=== PATIENT | male | born 1965 | race Caucasian/White ===

== ENCOUNTER 2017-07-17 09:28 | Observation (INO) | payer BC ==
[2017-07-17] VITALS (7 sets, daily range): BP systolic 109–137; BP diastolic 67–79; PULSE 68–78; RESP 17–27; TEMP 98–98.7; O2SAT 91–95
[~2017-07-17] VITALS: Ht 182.9 cm; Wt 144.1 kg
[~2017-07-17 09:28] MED LIST: LOSA50TA PO; METF1000 PO
[2017-07-17] MEDS ORDERED: AMLO10TA2 PO (12:13)
[2017-07-17 14:22] LABS: CREATINE KINASE 136 U/L (39-308)
[2017-07-17] MEDS ORDERED: SODIUM CHLORIDE 0.9% FLUSH 10 ML FLUSH IV FLUSH PRN (14:30)
[2017-07-17] MEDS ORDERED: ACETAMINOPHEN 500 MG CPLT PO PRN (14:30)
[2017-07-17] MEDS ORDERED: ONDANSETRON HCL 4 MG/2 ML VIAL IV PUSH PRN (14:30)
[2017-07-17] MEDS ORDERED: ALPRAZolam 0.25 MG TAB PO PRN (14:30)
[2017-07-17] MEDS ORDERED: NITROGLYCERIN 0.4 MG SL 25 TABS/BTL SL PRN (14:30)
[2017-07-17 14:34] LABS: CKMB 1.8 NG/ML (0.5-3.6)
[2017-07-17] MEDS ORDERED: GLUCAGON 1 MG/ML VIAL OTHER PRN (14:45)
[2017-07-17] MEDS ORDERED: DEXTROSE 50% IN WATER 50 ML VIAL(D50) IV PUSH PRN (14:45)
--- NOTE | 2017-07-17 14:56 | HHI.HP ---
[facility] Primary Care Physician Non-Staff Admission Diagnosis chest pain Diagnoses: Chief Complaint: chest pain Travel History International Travel<30 Days: No Contact w/Intl Traveler <30 Da: No Traveled to Known Affected Are: No History of Present Illness Written by Patricia Dominguez PA-C acting as scribe for Dr. Rapp on 07/17/17 at 1456. 52-year-old male with history of diabetes, hypertension, HLD as well as daily alcohol use presents with complaint of chest pain and high blood pressure. He describes pain as needles pinching in the center of his chest, episodes lasting less than 5 minutes, coming and going. Pain is not associated with exertion. Denies any associated palpitations or diaphoresis. Patient states he felt like he had to have a bowel movement at the time of chest pain. No previous stress test. Review of Systems Except as stated in HPI: all other systems reviewed are Neg Past Family Social History Past Medical History Diabetes Hypertension Hyperlipidemia Past Surgical History Umbilical hernia repair Laceration repair face Reported Medications Amlodipine (Amlodipine Besylate) 10 Mg Tab 10 Mg PO DAILY Metformin (Metformin HCl) 1,000 Mg Tab 1,000 Mg PO DAILY With a meal Losartan (Losartan Potassium) 50 Mg Tab 50 Mg PO DAILY Allergies: Coded Allergies: No Known Allergies (Unverified , 07/17/17) Family History Mother with coronary artery disease; of [place] in her 70s. Father: Diabetes Social History Drinks 4-6 beers daily. Does not smoke currently but smoked cigarettes for 20 years. Denies illicit drug use. Physical Exam Vital Signs Vital Signs Date Time Temp Pulse Resp B/P (MAP) Pulse Ox O2 Delivery O2 Flow Rate FiO2 07/17/17 12:21 98.0 72 27 132/78 (96) 07/17/17 09:35 98.1 70 17 137/70 (92) Physical Exam GENERAL: This is a morbidly obese well-developed patient, in no apparent distress. SKIN: No rashes, ecchymoses or lesions. Warm and dry. HEAD: Atraumatic. Normocephalic. EYES: No scleral icterus. No injection or drainage. NECK: Trachea midline. CARDIOVASCULAR: Regular rate and rhythm without murmurs, gallops, or rubs. RESPIRATORY: Clear to auscultation. Breath sounds equal bilaterally. No wheezes , rales, or rhonchi. GASTROINTESTINAL: Normoactive bowel sounds. Abdomen soft, non-tender, nondistended. No guarding. NEUROLOGICAL: Awake and alert. Normal speech. PSYCHIATRIC: Normal mood and affect. Laboratory Laboratory Tests Test 07/17/17 13:40 Total Creatine Kinase 136 Creatine Kinase MB 1.8 Troponin I LESS THAN 0.02 Imaging Last Impressions Chest CT 07/17/17 0000 Signed Impressions: Service Date/Time: Monday, July 17, 2017 15:15 - CONCLUSION: 1. Negative examination. MD Michael Mack VTE Risk Assessment Michael VTE Risk Assessment: Mod/High Risk (score >= 2) Caprini Risk Assessment Model Point Value = 1 Point Value = 2 Point Value = 3 Point Value = 5 Age 41-60 Minor surgery BMI > 25 kg/m2 Swollen legs Varicose veins or History of unexplained or recurrent spontaneous Oral contraceptives or hormone replacement Sepsis (< 1 month) Serious lung disease, including pneumonia (< 1 month) Abnormal pulmonary function Acute myocardial infarction Congestive heart failure (< 1 month) History of inflammatory bowel disease Medical patient at bed rest Age 61-74 Arthroscopic surgery Major open surgery (> 45 min) Laparoscopic surgery (> 45 min) Malignancy Confined to bed (> 72 hours) Immobilizing plaster cast Central venous access Age >= 75 History of VTE Family history of VTE Factor V Leiden Prothrombin [id number] Lupus anticoagulant Anticardiolipin antibodies Elevated serum homocysteine Heparin-induced thrombocytopenia Other congenital or acquired thrombophilia Stroke (< 1 month) Elective arthroplasty Hip, pelvis, or leg fracture Acute spinal cord injury (< 1 month) Prophylaxis Regimen Total Risk Factor Score Risk Level Prophylaxis Regimen 0-1 Low Early ambulation 2 Moderate Order ONE of the following: *Sequential Compression Device (SCD) *Heparin 5000 units SQ BID 3-4 Higher Order ONE of the following medications: *Heparin 5000 units SQ TID *Enoxaparin/Lovenox 40 mg SQ daily (WT < 150 kg, CrCl > 30 mL/min) *Enoxaparin/Lovenox 30 mg SQ daily (WT < 150 kg, CrCl > 10-29 mL/min) *Enoxaparin/Lovenox 30 mg SQ BID (WT < 150 kg, CrCl > 30 mL/min) AND/OR *Sequential Compression Device (SCD) 5 or more Highest Order ONE of the following medications: *Heparin 5000 units SQ TID (Preferred with Epidurals) *Enoxaparin/Lovenox 40 mg SQ daily (WT < 150 kg, CrCl > 30 mL/min) *Enoxaparin/Lovenox 30 mg SQ daily (WT < 150 kg, CrCl > 10-29 mL/min) *Enoxaparin/Lovenox 30 mg SQ BID (WT < 150 kg, CrCl > 30 mL/min) AND *Sequential Compression Device (SCD) Assessment and Plan Assessment and Plan 52-year-old male with: Chest pain: EKG personally interpreted with normal sinus rhythm and no evidence of ischemia. There is an intraventricular conduction delay. CBC unremarkable. Troponin 3 less than 0.02. CK-MB normal x 3. Chest x-ray personally interpreted with an abnormality noted at the right middle lobe although not indicated by radiology report. -CT chest with IV contrast normal. -Telemetry -325 mg daily aspirin -Nitroglycerin as needed for chest pain -Lipid profile -Patient's this pain could be due to anxiety. Will start Xanax 0.25 mg q8h prn. -Treadmill contraindicated due to obesity. Lexiscan cannot be performed today due to maintenance so will order test for the morning. NPO after midnight and no caffeine or decaf after 1900 hours. HTN: Continue Amlodipine and Losartan. Diabetes: Blood glucose controlled. -Hemoglobin A1c -Accu-checks and low dose SSI GI prophylaxis: Pepcid 20 mg po bid DVT prophylaxis: SCDs. This note was transcribed by heladio Dominguez. I, Dr. Lizandro Mancilla personally performed the history, physical exam, and medical decision making; and confirmed the accuracy of the information in the transcribed note. Authenticated by Dr. Lizandro Mancilla on 07/17/17 at 15:07. Discussed Condition With patient Patricia Dominguez Jul 17, 2017 14:56 Lizandro Farley MD Jul 17, 2017 17:05
[2017-07-17] MEDS ORDERED: IOHEXOL 350 MG/ML 10 ML VIAL (for RAD DIAG) IVCONTRAST ONE (15:20)
[2017-07-17] MEDS ORDERED: METFORMIN HOLD POST IV CONTRAST SCH (15:20)
--- NOTE | 2017-07-17 15:32 | RADRPT ---
EXAM DATE/TIME: 07/17/2017 15:15 [facility] COMPARISON: No previous studies available for comparison. INDICATIONS : Left sided chest pain. IV CONTRAST: 65 cc Omnipaque 350 (iohexol) IV RADIATION DOSE: 30.98 CTDIvol (mGy) ; Patient body habitus MEDICAL HISTORY : Hypertension. Diabetes. SURGICAL HISTORY : None. ENCOUNTER: Initial ACUITY: 2 days PAIN SCALE: 1/10 LOCATION: Left chest TECHNIQUE: Volumetric scanning of the chest was performed. Using automated exposure control and adjustment of t he mA and/or kV according to patient size, radiation dose was kept as low as reasonably achievable to obtain optimal diagnostic quality images. DICOM format image data is available electronically for review and comparison. Follow-up recommendations for detected pulmonary nodules are based at a minimum on nodule size and pa tient risk factors according to Fleischner Society Guidelines. FINDINGS: LUNGS: There is no consolidation or pneumothorax. No concerning pulmonary nodule is visualized. PLEURA: There is no pleural thickening or pleural effusion. MEDIASTINUM: The heart and great vessels demonstrate no acute abnormality. There is no mediastinal or hilar lymph adenopathy. AXILLAE: Within normal limits. No lymphadenopathy. SKELETAL: There are mild degenerative changes in the thoracic spine. MISCELLANEOUS: The visualized upper abdominal organs demonstrate no acute abnormality. CONCLUSION: 1. Negative examination. Aroldo Neal MD on July 17, 2017 at 15:27 Board Certified Radiologist. This report was verified electronically.
[2017-07-17] MEDS: LOSARTAN 50 MG TAB PO SCH (16:22)
[2017-07-17] MEDS: INSULIN ASPART SUPPLEMENTAL SCALE SQ SCH ×2 (17:00→21:00)
[2017-07-17] MEDS: SODIUM CHLORIDE 0.9% FLUSH 10 ML FLUSH IV FLUSH SCH (21:09)
[2017-07-17] MEDS: FAMOTIDINE 20 MG TAB PO SCH (21:11)
[2017-07-18] VITALS: BP 140/80; PULSE 58; PULSE 66; RESP 17; TEMP 98; O2SAT 92
[2017-07-18 04:29] VITALS: BP 147/81; PULSE 68; RESP 21; TEMP 98.4; O2SAT 93
[2017-07-18 07:00] VITALS: PULSE 67
[2017-07-18 08:00] VITALS: BP 126/71; PULSE 66; RESP 17; TEMP 98; O2SAT 92; O2SAT 96
[2017-07-18] MEDS: INSULIN ASPART SUPPLEMENTAL SCALE SQ SCH ×2 (08:00→12:00)
[2017-07-18] MEDS: LOSARTAN 50 MG TAB PO SCH (09:00)
[2017-07-18] MEDS: SODIUM CHLORIDE 0.9% FLUSH 10 ML FLUSH IV FLUSH SCH (09:00)
[2017-07-18] MEDS: FAMOTIDINE 20 MG TAB PO SCH (09:00)
[2017-07-18] MEDS ORDERED: ASPIRIN 325 MG TAB PO SCH (09:00)
[2017-07-18] MEDS ORDERED: REGADENOSON INJ 0.4 MG/5 ML SYR IV ONE (09:30)
[2017-07-18 09:36] LABS: HDL CHOLESTEROL 37.1 MG/DL (40.0-60.0); LDL CHOLESTEROL 71 MG/DL (0-99)
--- NOTE | 2017-07-18 11:13 | RADRPT ---
EXAM DATE/TIME: 07/18/2017 09:01 [facility] COMPARISON: No previous studies available for comparison. INDICATIONS : Chest pain radiating to the left shoulder. Angina. DOSE: 35 mCi Tc99m Myoview at stress. 11 mCi Tc99m Myoview at rest. 0.4 mg Lexiscan STRESS SYMPTOMS: Dyspnea and dizziness. EJECTION FRACTION: 40% MEDICAL HISTORY : Hypercholesterolemia. Hypertension. Gastroesophageal reflux disease. SURGICAL HISTORY : Umbilical hernia repair. ENCOUNTER: Initial ACUITY: 1 day PAIN SCALE: 6/10 LOCATION: chest TECHNIQUE: The patient underwent pharmacologic stress with infusion of prescribed dose. Continuous ECG tracing was monitored during stress. Gated SPECT imaging was performed after stress and conventional SPECT i maging was performed at rest. The examination was performed on a SPECT/CT scanner, both attenuation and non-corrected datasets were reviewed. FINDINGS: There is mild dilatation of ventricular cavity with ejection fraction of 40%. The best perfused myocardium at stress is the anterior lateral wall. There are no fixed defects to s uggest infarction. There is no redistribution suggest ischemia. CONCLUSION: Ejection fraction 40%, negative for stress-induced ischemia. RISK CATEGORY: Low (<1% Annual Mortality Rate) Siva Neal MD FACR on July 18, 2017 at 11:10 Board Certified Radiologist. This report was verified electronically.
--- NOTE | 2017-07-18 11:27 | TR ---
Date Performed: 07/18/2017 Time Performed: 09:33:58 DOCTOR: Ej Mckay DRUG LIST: CLINICAL HISTORY: REASON FOR TEST: Chest pain REASON FOR ENDING: OBSERVATION: CONCLUSION: Lexiscan stress test was performed under standard four minute protocol. Radionuclid e was injected one minute prior to ending the test. No electrocardiographic abormalities were present to suggest ischemia. Nuclear imaging and interpretation are pending. COMMENTS:
[2017-07-18 12:00] VITALS: BP 134/79; PULSE 68; RESP 24; TEMP 98.2; O2SAT 91
[2017-07-18] MEDS ORDERED: FURO1TAB62 PO (13:04)
[2017-07-18] MEDS ORDERED: CORE25TA PO (13:04)
--- NOTE | 2017-07-18 13:04 | HHI.DCPOC ---
Discharge Care Plan Diagnosis: (1) Chest pain, atypical (2) Heart failure Goals to Promote Your Health * To prevent worsening of your condition and complications * To maintain your health at the optimal level Directions to Meet Your Goals Take your medications as prescribed Follow your dietary instruction Follow activity as directed Keep your appointments as scheduled Take your immunizations and boosters as scheduled If your symptoms worsen call your PCP, if no PCP go to Urgent Care Center or Emergency Room Smoking is Dangerous to Your Health. Avoid second hand smoke Call the 24-hour hour crisis hotline for domestic abuse at Regine Ortiz MD Jul 18, 2017 13:04
--- NOTE | 2017-07-18 13:08 | HHI.DS ---
Discharge Summary Admission Date Jul 17, 2017 at 09:29 Discharge Date: Jul 18, 2017 Admitting Diagnosis chest pain (1) DM2 (diabetes mellitus, type 2) ICD Code: E11.9 - Type 2 diabetes mellitus without complications (2) Chest pain, atypical ICD Code: R07.89 - Other chest pain (3) Heart failure ICD Code: I50.9 - Heart failure, unspecified Procedures ST Brief History - From Admission Written by Patricia Dominguez PA-C acting as scribe for Dr. Rapp on 07/17/17 at 1456. 52-year-old male with history of diabetes, hypertension, HLD as well as daily alcohol use presents with complaint of chest pain and high blood pressure. He describes pain as needles pinching in the center of his chest, episodes lasting less than 5 minutes, coming and going. Pain is not associated with exertion. Denies any associated palpitations or diaphoresis. Patient states he felt like he had to have a bowel movement at the time of chest pain. No previous stress test. Significant Findings Laboratory Tests Test 07/17/17 13:40 07/18/17 04:25 Troponin I LESS THAN 0.02 NG/ML Triglycerides Level 200 MG/DL (42-150) HDL Cholesterol 37.1 MG/DL (40.0-60.0) Imaging Last Impressions Myocardial Perfusion Scan Nuc Med 07/18/17 0600 Signed Impressions: Service Date/Time: Tuesday, July 18, 2017 09:01 - CONCLUSION: Ejection fraction 40%%, negative for stress-induced ischemia. RISK CATEGORY: Low (<1%% Annual Mortality Rate) Siva Neal MD FACR Chest CT 07/17/17 0000 Signed Impressions: Service Date/Time: Monday, July 17, 2017 15:15 - CONCLUSION: 1. Negative examination. Aroldo Neal MD PE at Discharge GENERAL: This is a well-nourished, well-developed patient, in no apparent distress. CARDIOVASCULAR: Regular rate and rhythm without murmurs, gallops, or rubs. RESPIRATORY: Clear to auscultation. Breath sounds equal bilaterally. No wheezes , rales, or rhonchi. GASTROINTESTINAL: Abdomen soft, non-tender, nondistended. Normal active bowel sounds MUSCULOSKELETAL: Extremities without clubbing, cyanosis, or edema. NEURO: Alert & Oriented x4 to person, place, time, situation. Moves all ext x4 Pt update on day of discharge patient CP resolved ST completed, discussed with patient and spouse Symptoms of SOB and LAM, with Edema medication changes addressed Hospital Course patient came to be evaluated for SOB and edema with CP ST completed an shows no ischemic changed but reduced EF with ptn symptoms Likely early CHF, Coreg replaced amlodipine and education provided, lasix added Pt Condition on Discharge: Good Discharge Disposition: Discharge Home Discharge Time: > 30 minutes Discharge Instructions DIET: Follow Instructions for: Heart Healthy Diet, Diabetic Diet Activities you can perform: Regular-No Restrictions Follow up Referrals: PCP Follow-up - 1 Week with maria elena New Orders: 2D ECHO New Medications: Carvedilol (Coreg) 25 Mg Tab 25 MG PO BID for Blood Pressure Management, #60 TAB 0 Refills Furosemide (Lasix) 20 Mg Tab 20 MG PO EVERY OTHER DAY for fluid, #30 TAB 0 Refills Continued Medications: Losartan (Losartan) 50 Mg Tab 50 MG PO DAILY for Blood Pressure Management, #30 TAB 0 Refills Metformin (Metformin) 1,000 Mg Tab 1000 MG PO DAILY for Blood Sugar Management, #30 TAB 0 Refills With a meal Discontinued Medications: Amlodipine (Amlodipine) 10 Mg Tab 10 MG PO DAILY for Blood Pressure Management, #30 TAB 0 Refills Regine Ortiz MD Jul 18, 2017 13:08
[2017-07-18] MEDS ORDERED: FUROSEMIDE 40 MG TAB PO ONE (13:15)
[2017-07-18 17:00] LABS: HEMOGLOBIN A1b 1.7 %; HEMOGLOBIN LA1C 1.9 %; HEMOGLOBIN P3 3.6 %
--- NOTE | 2017-07-18 20:53 | EKG ---
Date Performed: 07/17/2017 Time Performed: 19:09:05 PTAGE: 52 years EKG: Sinus rhythm INTRAVENTRICULAR CONDUCTION DELAY ABNORMAL ECG PREVIOUS TRACING : 07/17/2017 13.47 Compared to prior tracing no significant change DOCTOR: Oscar Martell Interpretating Date/Time 07/18/2017 20:47:52
--- NOTE | 2017-07-18 21:02 | EKG ---
Date Performed: 07/17/2017 Time Performed: 13:47:32 PTAGE: 52 years EKG: Sinus rhythm INTRAVENTRICULAR CONDUCTION DELAY ABNORMAL ECG NO PREVIOUS TRACING DOCTOR: Oscar Martell Interpretating Date/Time 07/18/2017 20:53:38
== END 2017-07-18 15:20 | disposition home or self-care (01) ==
LOC: PHEDDLT 09:28 → PHICU 09:29
PROVIDERS: ADMIT Hospitalist; ATTEND Hospitalist
DX: I50.9 Heart failure, unspecified (principal); I11.0 Hypertensive heart disease with heart failure; E11.9 Type 2 diabetes mellitus without complications; E78.5 Hyperlipidemia, unspecified; E66.9 Obesity, unspecified; Z68.41 Body mass index [BMI] 40.0-44.9, adult; Z87.891 Personal history of nicotine dependence; Z79.84 Long term (current) use of oral hypoglycemic drugs
CPT/HCPCS: 71010; 71260; 78452; 80048; 80061; 82550; 82552; 82948; 83036; 83735; 84443; 84484; 85025; 85610; 85730; 93005; 93017; A9502; G0378; J2785; Q9967; 99285

== ENCOUNTER 2018-08-19 01:45 | Inpatient (IN) ==
[2018-08-19] MEDS ORDERED: Bisacodyl 10 MG Supp RECTAL PRN (03:48)
[2018-08-19] MEDS ORDERED: Haloperidol Inj 5 MG/ML Ampul IV.PUSH PRN (03:54)
[2018-08-19] MEDS ORDERED: LORazepam 1 MG Tablet PO PRN (03:54)
[2018-08-19] MEDS: Sod Chloride 0.9% Inj 1,000 ML IV.CONT SCH ×3 (05:44→20:33)
[2018-08-19] MEDS ORDERED: Dextrose 50% in Water 50 ML Vial IV.PUSH PRN (09:17)
--- NOTE | 2018-08-19 11:00 | MB ---
cc: Jaun Hurtado MD DATE: 08/19/2018 REASON FOR CONSULTATION: Rule out small bowel obstruction. CONSULTING PHYSICIAN: Chrissy Paz MD CHIEF COMPLAINT: Abdominal pain, diarrhea. HISTORY OF PRESENT ILLNESS: The patient is a 53-year-old male who presents with a 7-day history of abdominal pain. He states he was on a cruise ship traveling to [facility], [place] and developed acute onset of epigastric pain. He states the pain is not really radiating and localized in the epigastric area. He has also had minimal nausea and multiple episodes of diarrhea. He states that he has had subjective fevers. He states the pain at its worst is 8/10 and currently a 2/10. He states the pain has continued to get worse, and he was seen in the emergency department for further evaluation including CT scan with a significantly dilated small bowel, concern for bowel obstruction. The patient notes he is a daily drinker of 4-6 beers a 2-day, history of smoking but denies current smoking. Has never had this issue prior. He denies any sick contacts on the boat as well. PAST MEDICAL HISTORY: Diabetes, hypertension, hypercholesteremia. PAST SURGICAL HISTORY: Umbilical hernia repair. ALLERGIES: NO KNOWN DRUG ALLERGIES. SOCIAL HISTORY: Denies smoking, etoh, ivda MEDICATIONS: See EMR. FAMILY HISTORY: Mother with coronary artery disease, [place]. Father with diabetes. REVIEW OF SYSTEMS: GENERAL: The patient has an episode of chills. Denies fevers. HEENT: Denies eye pain, ear pain. NECK: Denies swelling or pain. LUNGS: Denies cough or wheeze. HEART: Denies palpitations or chest pain. ABDOMEN: Complains of diarrhea and abdominal pain. GENITOURINARY: Denies dysuria or hematuria. ENDOCRINE: Denies polyuria or polydipsia. INTEGUMENT: Denies any masses or lesions. NEUROLOGIC: Denies any change in numbness or tingling. PSYCHIATRIC: Denies any change in behavior. PHYSICAL EXAMINATION: GENERAL: The patient in no acute distress. VITAL SIGNS: Temperature 97.6, pulse 74, respirations 17, blood pressure 130/76, saturation 97%. HEENT: Pupils are equal, round, reactive. NECK: Supple. Trachea midline. LUNGS: Clear to auscultation, bilateral expansion. HEART: S1, S2. Regular. ABDOMEN: Soft, obese, distention. Mild tenderness to palpation in epigastric area. No guarding, no rebound. EXTREMITIES: Warm and well perfused. NEUROLOGIC: GCS of 15 and 5/5 motor all extremities. INTEGUMENT: No obvious masses or lesions. PSYCHIATRIC: Appropriate mood, appropriate judgment. LABORATORY AND DIAGNOSTIC DATA: WBC 9.1, hemoglobin 15.8, hematocrit 45.4, platelets 405. Sodium 137, potassium 4, chloride 105, BUN 28, creatinine 2.7, AST 19, ALT 37. CT reviewed by myself showing marked dilation of small bowel. No evidence of a specific transition point. No free fluid, no free air. ASSESSMENT: The patient is a 53-year-old male. Rule out small bowel obstruction, abdominal pain, diarrhea. PLAN: After full workup, the patient with above-named issues. At this point, the patient is stating his pain has improved some. He is denying vomiting at this time. A CT does show marked dilated small bowel and stomach. If patient does become nauseous or vomits, would recommend placement of an NG tube; however, we will consider continuing to treat this nonoperatively. Recommend checking any electrolyte abnormalities. The patient likely has enteritis as a result of GI illness; however, we will continue to follow and evaluate to rule out any obstruction. We will consider abdominal x-ray tomorrow and likely check a small bowel follow-through in 48 hours. Discussed with the patient and family at bedside. MD INGRID Jackson/stephanie , 10:36 AM , 10:46 AM JESS
[2018-08-19 12:07] LABS: Calcium 8.4 mg/dL (8.5-10.1); Carbon Dioxide 20.1 meq/L (21.0-32.0); Potassium 3.5 meq/L (3.5-5.1)
[2018-08-19] MEDS ORDERED: Morphine Inj 4 MG/ML Vial IV.PUSH PRN ×4 (12:45→14:56)
[2018-08-19] MEDS: Insulin NovoLOG Aspart Correctional Sugar Inj SQ SCH ×3 (12:48→20:35)
--- NOTE | 2018-08-19 14:29 | P.HPIM ---
History of Present Illness Service: [facility] Primary Care Physician: Lenora Jimenez Chief Complaint: ABDOMINAL PAIN History of Present Illness: Patient is a 53-year-old gentleman who presented to the emergency department at [facility] for abdominal pain for at least 7 days. Patient had recently been at [facility] in [place] and was hospitalized there for at least 3 days he states. He had also states that he had been on a cruise ship and upon returning home he had symptoms since that he has had pain in his epigastric region but does not really radiate. He reports some nausea some vomiting but has not had any recently. Patient was seen at [facility] 3 days ago. And he states they could not find anything wrong with him. Continues to have abdominal pain and therefore came to the [facility] emergency department for evaluation. Patient's past medical history is significant for diabetes and hypertension and alcohol abuse Family history is positive for father having colon cancer and mother having heart attack as well as diabetes and hypertension in the family Patient has been admitted. Surgery has been consulted. We will continue pain medications and fluids. Patient states he has lost 20 pounds in the past few days to week Inpatient Certification: I certify that the inpatient services were ordered in accordance with Medicare regulations governing the order. This includes certification that hospital inpatient services are reasonable and necessary and in the case of services not specified as inpatient-only under 42 CFR 419.22(n), that they are appropriately provided as inpatient services in accordance to with the 2-midnight benchmark under 43 CFR 412.3(e) Estimated Total Length of Stay (Days): 3 Plans for Post Hospital Care: Home Review of Systems All other systems reviewed negative except as stated in HPI [facility] - History History Provided By: Patient - Medical History Medical History: Medical History (Last Updated 08/19/18 @ 14:14 by Siva Sainz DO) Alcohol abuse Arthritis Diabetes Hypertension - Surgical History Surgical History: Surgical History (Last Updated 08/19/18 @ 14:14 by Siva Sainz DO) No history of previous surgery - Family History Family History: Family History (Last Updated 08/19/18 @ 14:14 by Siva Sainz DO) Other Family history of acute myocardial infarction Family history of colon cancer Family history of diabetes mellitus Family history of hypertension - Tobacco History Second Hand Smoke Exposure: No Tobacco Use In Past 30 Days: No Smoking Status: Never smoker - Alcohol History How Often Do You Have a Drink Containing Alcohol: 4 or more times a week - Substance Use History Substance History: No History of Abuse - Travel History History of Recent Travel: Yes Recent Travel in the [place] Within the Last 8 Weeks: Yes Recent Travel Out of the Country Within the Last 8 Weeks: Yes - Immunization History Tetanus Immunization: Unsure Hx Influenza Vaccine This Season: Yes Medications and Allergies Active Medications: Active Medications Bisacodyl (Dulcolax Supp) 10 mg RECTAL DAILY PRN PRN Reason: SEVERE CONSITIPATION Dextrose (D50w Vial) 50 ml IV.PUSH UNSCH PRN PRN Reason: PER HYPOGLYCEMIA PROTOCOL Flumazenil (Romazecon Inj) 0.2 mg IV.PUSH Q1M PRN PRN Reason: OVERSEDATION Glucagon (Glucagon Inj) 1 mg OTHER PRN PRN PRN Reason: for Hypoglycemia Protocol Haloperidol Lactate (Haldol Inj) 1 mg IV.PUSH Q15M PRN PRN Reason: for severe agitation Sodium Chloride (Ns Inj) 1,000 mls @ 125 mls/hr IV.CONT .Q8H GEOVANNY Last Admin: 08/19/18 05:44 Dose: 125 mls/hr Insulin Aspart (Novolog Insulin Correctional Sugar Inj) 0 unit SQ ACHS AND 3AM GEOVANNY; Protocol Last Admin: 08/19/18 12:48 Dose: Not Given Lorazepam (Ativan) 1 mg PO Q4H PRN PRN Reason: for CIWA 8-10 Lorazepam (Ativan Inj) 2 mg IV.PUSH Q2H PRN PRN Reason: for CIWA 11-14 Lorazepam (Ativan Inj) 2 mg IV.PUSH Q1H PRN PRN Reason: for CIWA 15-20 Lorazepam (Ativan Inj) 2 mg IV.PUSH Q15M PRN PRN Reason: for CIWA > 20 Lorazepam (Ativan Inj) 1 mg IV.PUSH Q4H PRN PRN Reason: for CIWA 8-10 Lorazepam (Ativan) 2 mg PO Q2H PRN PRN Reason: for CIWA 11-14 Morphine Sulfate (Morphine Inj) 2 mg IV.PUSH Q4H PRN PRN Reason: PAIN SCALE 6 TO 10 Last Admin: 08/19/18 12:45 Dose: 2 mg Ondansetron HCl (Zofran Inj) 4 mg IV.PUSH Q6H PRN PRN Reason: NAUSEA OR VOMITING Allergies Allergy/AdvReac Type Severity Reaction Status Date / Time No Known Allergies Allergy Verified 08/19/18 01:59 Home Medications Medication Instructions Recorded Confirmed Type losartan 25 mg PO DAILY 08/19/18 08/19/18 History metformin 1,000 mg PO DAILY 08/19/18 08/19/18 History Exam Vital signs: Vital Signs 08/19/18 05:25 08/19/18 05:48 08/19/18 08:00 Temperature 97.6 F 97.6 F Pulse Rate 74 81 Respiratory Rate 17 20 15 Blood Pressure 138/76 112/69 Pulse Oximetry 97 96 08/19/18 12:00 Temperature 97.6 F Pulse Rate 77 Respiratory Rate 16 Blood Pressure 137/81 Pulse Oximetry 96 Intake & Output 08/18/18 08/19/18 08/19/18 18:59 06:59 18:59 Intake Total 0 / 0 Balance 0 / 0 Weight 134.8 kg Intake: Oral 0 / 0 Other: # Voids 1 Date of Last Bowel Movement 08/19/18 # Bowel Movements 1 Weight On Admission 134.8 kg Narrative: GENERAL: Awake alert oriented talkative and cooperative in moderate distress SKIN: Warm and dry. HEAD: Atraumatic. Normocephalic. EYES: Pupils equal and round. No scleral icterus. No injection or drainage. EOMI ENT: No nasal bleeding or discharge. Mucous membranes pink and moist. Tongue is midline NECK: Trachea midline. No JVD. Neck is supple CARDIOVASCULAR: Regular rate and rhythm. S1-S2 no S3 or S4 RESPIRATORY: No accessory muscle use. Clear to auscultation. Breath sounds equal bilaterally. GASTROINTESTINAL: Hepatic and splenic margins not palpable. Distended obese mild to moderate tenderness MUSCULOSKELETAL: Extremities without clubbing, cyanosis, or edema. No obvious deformities. NEUROLOGICAL: Awake and alert. No obvious cranial nerve deficits. Motor grossly within normal limits. Five out of 5 muscle strength in the arms and legs. Normal speech. PSYCHIATRIC: Appropriate mood and affect; insight and judgment normal. Results - Labs CBC & Chem 7: 08/19/18 11:25 Labs: BMP 08/19/18 11:25 Sodium 137 Potassium 3.5 Chloride 107 Carbon Dioxide 20.1 L BUN 28 H Creatinine 1.94 H Calcium 8.4 L Caprini VTE Risk Assessment Caprini VTE Risk Assessment: No/Low Risk (score <= 1) Caprini Risk Assessment Model: Point Value = 1 Point Value = 2 Point Value = 3 Point Value = 5 Age 41-60 Minor surgery BMI > 25 kg/m2 Swollen legs Varicose veins or History of unexplained or recurrent spontaneous Oral contraceptives or hormone replacement Sepsis (< 1 month) Serious lung disease, including pneumonia (< 1 month) Abnormal pulmonary function Acute myocardial infarction Congestive heart failure (< 1 month) History of inflammatory bowel disease Medical patient at bed rest Age 61-74 Arthroscopic surgery Major open surgery (> 45 min) Laparoscopic surgery (> 45 min) Malignancy Confined to bed (> 72 hours) Immobilizing plaster cast Central venous access Age >= 75 History of VTE Family history of VTE Factor V Leiden Prothrombin [id number] Lupus anticoagulant Anticardiolipin antibodies Elevated serum homocysteine Heparin-induced thrombocytopenia Other congenital or acquired thrombophilia Stroke (< 1 month) Elective arthroplasty Hip, pelvis, or leg fracture Acute spinal cord injury (< 1 month) Prophylaxis Regimen: Total Risk Factor Score Risk Level Prophylaxis Regimen 0-1 Low Early ambulation 2 Moderate Order ONE of the following: *Sequential Compression Device (SCD) *Heparin 5000 units SQ BID 3-4 Higher Order ONE of the following medications: *Heparin 5000 units SQ TID *Enoxaparin/Lovenox 40 mg SQ daily (WT < 150 kg, CrCl > 30 mL/min) *Enoxaparin/Lovenox 30 mg SQ daily (WT < 150 kg, CrCl > 10-29 mL/min) *Enoxaparin/Lovenox 30 mg SQ BID (WT < 150 kg, CrCl > 30 mL/min) AND/OR *Sequential Compression Device (SCD) 5 or more Highest Order ONE of the following medications: *Heparin 5000 units SQ TID (Preferred with Epidurals) *Enoxaparin/Lovenox 40 mg SQ daily (WT < 150 kg, CrCl > 30 mL/min) *Enoxaparin/Lovenox 30 mg SQ daily (WT < 150 kg, CrCl > 10-29 mL/min) *Enoxaparin/Lovenox 30 mg SQ BID (WT < 150 kg, CrCl > 30 mL/min) AND *Sequential Compression Device (SCD) Assessment and Plan - Plan Abdominal pain and distention -Recently out of the country in [place] and [place] on a cruise ship -Stool for enteric pathogens Rule out vibrio versus NOROvirus rule out CDT colitis Place NG tube Abdominal pain with nausea and vomiting -Place NG tube Diabetes mellitus Sliding scale coverage with Accu-Cheks before meals and at bedtime Hypertension Resume home medications Chronic NSAID use will undergo an EGD and colonoscopy with gastroenterology Family history of colon cancer Dehydration/renal insufficiency Possibly secondary to nausea and vomiting Has chronic SHADIA inhibitor and chronic metformin will hold both Code Status: Full code Discussed Condition With: RN and patient and family been seen by surgery already Discharge Planning: Pending improvement H&P: Quality - VTE Deep Vein Thrombosis/Pulmonary Embolism Present on Admission: No
[2018-08-19] MEDS ORDERED: Naloxone Inj 0.4 MG/ML Vial IV.PUSH PRN (14:56)
[2018-08-19] MEDS ORDERED: Acetaminophen 325 MG Tablet PO PRN (14:56)
[2018-08-19] MEDS ORDERED: Morphine Sulfate Inj 2 MG/ML Vial IV.PUSH PRN (14:56)
[2018-08-19] MEDS ORDERED: Magnesium Citrate Liq 300 ML Bottle PO ONE (22:42)
--- NOTE | 2018-08-19 22:51 | P.CONGI ---
History of Present Illness Consult date: 08/19/18 Consult reason: Abdominal pain, diarrhea Chief complaint: renal failulre, SBO vs Ileus History of Present Illness: Patient is a pleasant 53-year-old gentleman who presents with complaints of abdominal pain and diarrhea the patient was in his usual state of health up until about a few days ago he apparently had been on a cruise and since getting off his complained of upper abdominal pain with radiation to the back with noted nausea and one episode of emesis denies any coffee-ground emesis hematemesis he also reports diarrhea unrelenting watery stool no mucus or blood no fever chills 3-4 times a day and this too is only been ongoing for about a week he denies any sick contacts the 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 he reports his last colonoscopy about 5 years ago the patient also reports his dad of colon cancer at the age of 62 Review of Systems Review of systems Patient denies any headache dizziness blurry vision, denies any chest pain shortness of breath cough fever chills, Denies any palpitations or fatigue denies any polyuria dysuria hematuria, denies any numbness tingling or weakness, denies any skin rash pruritus or jaundice, denies any easy bruising or bleeding tendency, denies any recent change in mood PMFSH - History History Provided By: Patient - Medical History Medical History: Medical History (Last Updated 08/19/18 @ 14:14 by Siva Sainz DO) Alcohol abuse Arthritis Diabetes Hypertension - Surgical History Surgical History: Surgical History (Last Updated 08/19/18 @ 14:14 by Siva Sainz DO) No history of previous surgery - Family History Family History: Family History (Last Updated 08/19/18 @ 14:14 by Siva Sainz DO) Other Family history of acute myocardial infarction Family history of colon cancer Family history of diabetes mellitus Family history of hypertension - Tobacco History Second Hand Smoke Exposure: No Tobacco Use In Past 30 Days: No Smoking Status: Never smoker - Alcohol History How Often Do You Have a Drink Containing Alcohol: 4 or more times a week - Substance Use History Substance History: No History of Abuse - Travel History History of Recent Travel: Yes Recent Travel in the [place] Within the Last 8 Weeks: Yes Recent Travel Out of the Country Within the Last 8 Weeks: Yes - Immunization History Tetanus Immunization: Unsure Hx Influenza Vaccine This Season: Yes Medications and Allergies Active Medications: Active Medications Acetaminophen (Tylenol) 650 mg PO Q6HR PRN PRN Reason: PAIN SCALE 1 TO 2 Bisacodyl (Dulcolax Supp) 10 mg RECTAL DAILY PRN PRN Reason: SEVERE CONSITIPATION Dextrose (D50w Vial) 50 ml IV.PUSH UNSCH PRN PRN Reason: PER HYPOGLYCEMIA PROTOCOL Flumazenil (Romazecon Inj) 0.2 mg IV.PUSH Q1M PRN PRN Reason: OVERSEDATION Glucagon (Glucagon Inj) 1 mg OTHER PRN PRN PRN Reason: for Hypoglycemia Protocol Haloperidol Lactate (Haldol Inj) 1 mg IV.PUSH Q15M PRN PRN Reason: for severe agitation Sodium Chloride (Ns Inj) 1,000 mls @ 125 mls/hr IV.CONT .Q8H GEOVANNY Last Admin: 08/19/18 20:33 Dose: 125 mls/hr Insulin Aspart (Novolog Insulin Correctional Sugar Inj) 0 unit SQ ACHS AND 3AM GEOVANNY; Protocol Last Admin: 08/19/18 20:35 Dose: Not Given Lorazepam (Ativan) 1 mg PO Q4H PRN PRN Reason: for CIWA 8-10 Last Admin: 08/19/18 20:32 Dose: 1 mg Lorazepam (Ativan Inj) 2 mg IV.PUSH Q2H PRN PRN Reason: for CIWA 11-14 Lorazepam (Ativan Inj) 2 mg IV.PUSH Q1H PRN PRN Reason: for CIWA 15-20 Lorazepam (Ativan Inj) 2 mg IV.PUSH Q15M PRN PRN Reason: for CIWA > 20 Lorazepam (Ativan Inj) 1 mg IV.PUSH Q4H PRN PRN Reason: for CIWA 8-10 Lorazepam (Ativan) 2 mg PO Q2H PRN PRN Reason: for CIWA 11-14 Magnesium Citrate (Citroma Liq) 300 ml PO ONCE ONE Stop: 08/20/18 06:01 Morphine Sulfate (Morphine Inj) 2 mg IV.PUSH Q3H PRN PRN Reason: PAIN 3-5; IF UABLE TO TAKE PO Morphine Sulfate (Morphine Inj) 4 mg IV.PUSH Q3H PRN PRN Reason: PAIN 6 Morphine Sulfate (Morphine Inj) 4 mg IV.PUSH Q1H PRN PRN Reason: Pain Scale 7-10 (Intractable) Morphine Sulfate (Morphine Inj) 4 mg IV.PUSH Q3H PRN PRN Reason: BREAKTHROUGH PAIN Naloxone HCl (Narcan Inj) 0.4 mg IV.PUSH UNSCH PRN PRN Reason: SEE LABEL COMMENTS Ondansetron HCl (Zofran Inj) 4 mg IV.PUSH Q6H PRN PRN Reason: NAUSEA OR VOMITING Last Admin: 08/19/18 14:22 Dose: 4 mg Oxycodone HCl (Roxicodone) 5 mg PO Q4H PRN PRN Reason: PAIN SCALE 3 TO 5 Oxycodone HCl (Roxicodone) 10 mg PO Q4H PRN PRN Reason: PAIN SCALE 6 TO 10 Allergies Allergy/AdvReac Type Severity Reaction Status Date / Time No Known Allergies Allergy Verified 08/19/18 01:59 Home Medications Medication Instructions Recorded Confirmed Type losartan 25 mg PO DAILY 08/19/18 08/19/18 History metformin 1,000 mg PO DAILY 08/19/18 08/19/18 History Exam Vital signs: Vital Signs 08/19/18 05:25 08/19/18 05:48 08/19/18 08:00 Temperature 97.6 F 97.6 F Pulse Rate 74 81 Respiratory Rate 17 20 15 Blood Pressure 138/76 112/69 Pulse Oximetry 97 96 08/19/18 12:00 08/19/18 16:00 08/19/18 20:00 Temperature 97.6 F 97.6 F 98.1 F Pulse Rate 77 89 91 H Respiratory Rate 16 16 17 Blood Pressure 137/81 120/74 138/78 Pulse Oximetry 96 98 94 L Intake & Output 08/19/18 08/19/18 08/20/18 06:59 18:59 06:59 Intake Total 0 / 0 1000 / 1000 Balance 0 / 0 1000 / 1000 Weight 134.8 kg Intake: IV 1000 / 1000 NS Inj 1,000 ML @ 125 mls/hr IV 1000 / 1000 .CONT .Q8H GEOVANNY Rx#:[id number] Oral 0 / 0 Other: # Voids 1 3 Date of Last Bowel Movement 08/19/18 08/19/18 # Bowel Movements 1 10 Weight On Admission 134.8 kg - Constitutional no acute distress, obese - Routine HEENT Exam Head: Present: normocephalic, atraumatic Eye: Present: EOMI, PERRL ENT: Present: mucous membranes moist - Routine Neck Exam Present: supple. Absent: JVD, carotid bruit, lymphadenopathy - Routine Respiratory Exam Present: CTA bilaterally. Absent: rhonchi, crackles - Routine Cardiovascular Exam Present: RRR, S1, S2. Absent: murmur, gallop, rubs - Routine Abdominal Exam Present: soft. Absent: tenderness, distended, organomegaly - Routine Extremities Exam Absent: cyanosis, clubbing, edema - Routine Skin Exam Present: dry, warm - Routine Neurological Exam Present: alert, oriented X3 Results - Labs CBC & Chem 7: 08/19/18 11:25 Labs: Laboratory Results - last 24 hr 08/19/18 08/19/18 08/19/18 10:58 11:25 17:44 Sodium 137 Potassium 3.5 Chloride 107 Carbon Dioxide 20.1 L Anion Gap 10 BUN 28 H Creatinine 1.94 H Estimated GFR 36 L POC Glucose 84 87 Random Glucose 94 Calcium 8.4 L 08/19/18 20:34 Sodium Potassium Chloride Carbon Dioxide Anion Gap BUN Creatinine Estimated GFR POC Glucose 86 Random Glucose Calcium Assessment and Plan - Plan Patient presenting with upper abdominal pain with one episode of nausea with reported diarrhea and family history of colon cancer Await labs to be completed We will continue with current supportive measures and IV fluids We will plan on an EGD and colonoscopy tomorrow
[2018-08-20] MEDS: Insulin NovoLOG Aspart Correctional Sugar Inj SQ SCH ×5 (03:31→20:31)
[2018-08-20] MEDS: Sod Chloride 0.9% Inj 1,000 ML IV.CONT SCH ×3 (03:31→20:34)
[2018-08-20 05:19] LABS: Baso % (Auto) 0.2 % (0.0-2.0); Eos # (Auto) 0.1 th/mm3 (0.0-0.4); Eos % (Auto) 1.8 % (0.0-4.0); Hematocrit 44.1 % (39.0-51.0); Lymph # (Auto) 1.6 th/mm3 (1.0-4.8); Lymph % (Auto) 21.5 % (9.0-44.0); Mean Corpuscular Hemoglobin 30.4 pg (27.0-34.0); Mean Corpuscular Volume 89.5 fL (80.0-100.0); Mean Platelet Volume 7.9 fL (7.0-11.0); Mono # (Auto) 1.4 th/mm3 (0.0-0.9); Mono % (Auto) 18.7 % (0.0-8.0); Neut # (Auto) 4.3 th/mm3 (1.8-7.7); Neut % (Auto) 57.8 % (16.0-70.0); Platelet Count 342 th/mm3 (150-450); Red Blood Count 4.93 mil/mm3 (4.50-5.90); Red Cell Distribution Width 13.2 % (11.6-17.2); White Blood Count 7.4 th/mm3 (4.0-11.0)
[2018-08-20 05:43] LABS: Albumin 3.1 g/dL (3.4-5.0); Anion Gap 10 meq/L (5-15); Aspartate Aminotransferase 10 U/L (15-37); Blood Urea Nitrogen 30 mg/dL (7-18); Carbon Dioxide 21.2 meq/L (21.0-32.0); Chloride 110 meq/L (98-107); Glomerular Filtration Rate 40 mL/min (>89); Glucose,Random 91 mg/dL (74-106); Lipase 271 U/L (73-393); Magnesium 2.1 mg/dL (1.5-2.5); Sodium 141 meq/L (136-145)
[2018-08-20 05:48] LABS: Alanine Aminotransferase 26 U/L (12-78); Alkaline Phosphatase 77 U/L (45-117); Phosphorus 3.4 mg/dL (2.5-4.9); Total Protein 8.2 g/dL (6.4-8.2)
[2018-08-20] MEDS ORDERED: Magnesium Citrate Liq 300 ML Bottle PO ONE (06:00)
--- NOTE | 2018-08-20 11:38 | XR ---
EXAM DATE: 08/20/2018 12:00 AM EDT AGE/SEX: 53 years / Male INDICATIONS: Obstruction. CLINICAL DATA: This is the patient's initial encounter. Patient reports that signs and symptoms have been present for 1 week and indicates a pain score of 6/10. MEDICAL/SURGICAL HISTORY: Hypertension. Diabetes. diarrhea . umbilical hernia COMPARISON: [facility], CT ABDOMEN & PELVIS W/O CONTRAST, 08/19/2018. . FINDINGS: Persistent mild gaseous distention of occasional small bowel loops. Air present in normal caliber co jojo. No evidence of pneumoperitoneum. No suspicious calcific densities. Regional skeleton is grossly intact. CONCLUSION: Improved bowel gas pattern Electronically signed by: Dwayne Pizano MD 08/20/2018 11:36 AM EDT
--- NOTE | 2018-08-20 13:38 | P.PNIM ---
Subjective Interval history: Chief Complaint: ABDOMINAL PAIN History of Present Illness: Patient is a 53-year-old gentleman who presented to the emergency department at [place] for abdominal pain for at least 7 days. Patient had recently been at [facility] in [place] and was hospitalized there for at least 3 days he states. He had also states that he had been on a cruise ship and upon returning home he had symptoms since that he has had pain in his epigastric region but does not really radiate. He reports some nausea some vomiting but has not had any recently. Patient was seen at [facility] 3 days ago. And he states they could not find anything wrong with him. Continues to have abdominal pain and therefore came to the [facility] emergency department for evaluation. Patient's past medical history is significant for diabetes and hypertension and alcohol abuse Family history is positive for father having colon cancer and mother having heart attack as well as diabetes and hypertension in the family Patient has been admitted. Surgery has been consulted. We will continue pain medications and fluids. Patient states he has lost 20 pounds in the past few days to week 10-23 to undergo EGD AND COLONOSCOPY TODAY DW RN AND PT NO MORE VOMITING DW RN AND PT DENIES ANYMORE DIARRHEA AM LABS INCREASE ACTIVITY Physical Exam Vital signs: Vital Signs 08/19/18 16:00 08/19/18 20:00 08/20/18 00:00 Temperature 97.6 F 98.1 F 97.6 F Pulse Rate 89 91 H 88 Respiratory Rate 16 17 17 Blood Pressure 120/74 138/78 110/65 Pulse Oximetry 98 94 L 93 L 08/20/18 08:00 08/20/18 11:50 Temperature 97.0 F L 97.1 F L Pulse Rate 75 86 Respiratory Rate 17 18 Blood Pressure 109/58 L 138/90 Pulse Oximetry 97 97 Intake & Output 08/19/18 08/20/18 08/20/18 18:59 06:59 18:59 Intake Total 2500 / 2500 1000 / 1000 Balance 2500 / 2500 1000 / 1000 Weight 134.8 kg Intake: IV 1999 1000 / 1000 NS Inj 1,000 ML @ 125 mls/hr IV 1999 1000 / 1000 .CONT .Q8H GEOVANNY Rx#:[id number] Oral 500 / 500 Other: # Voids 3 3 Date of Last Bowel Movement 08/19/18 # Bowel Movements 10 2 Narrative: GENERAL: Awake alert oriented talkative and cooperative in moderate distress SKIN: Warm and dry. HEAD: Atraumatic. Normocephalic. EYES: Pupils equal and round. No scleral icterus. No injection or drainage. EOMI ENT: No nasal bleeding or discharge. Mucous membranes pink and moist. Tongue is midline NECK: Trachea midline. No JVD. Neck is supple CARDIOVASCULAR: Regular rate and rhythm. S1-S2 no S3 or S4 RESPIRATORY: No accessory muscle use. Clear to auscultation. Breath sounds equal bilaterally. GASTROINTESTINAL: Hepatic and splenic margins not palpable. Distended obese mild to moderate tenderness MUSCULOSKELETAL: Extremities without clubbing, cyanosis, or edema. No obvious deformities. NEUROLOGICAL: Awake and alert. No obvious cranial nerve deficits. Motor grossly within normal limits. Five out of 5 muscle strength in the arms and legs. Normal speech. PSYCHIATRIC: Appropriate mood and affect; insight and judgment normal. Results - Labs CBC & Chem 7: 08/20/18 04:19 08/20/18 04:19 Laboratory Results - last 24 hr 08/19/18 08/19/18 08/19/18 10:58 17:44 19:37 WBC RBC Hgb Hct MCV MCH MCHC RDW Plt Count MPV Neut % (Auto) Lymph % (Auto) Brooks % (Auto) Eos % (Auto) Baso % (Auto) Neut # (Auto) Lymph # (Auto) Brooks # (Auto) Eos # (Auto) Baso # (Auto) WBC Differential Differential Comment Sodium Potassium Chloride Carbon Dioxide Anion Gap BUN Creatinine Estimated GFR POC Glucose 84 87 Random Glucose Calcium Phosphorus Magnesium Total Bilirubin AST ALT Alkaline Phosphatase Total Protein Albumin Lipase Stl C.difficile DNA Amp Negative St C. diff Tox Epid 027 Negative 08/19/18 08/20/18 08/20/18 20:34 04:19 04:19 WBC 7.4 RBC 4.93 Hgb 15.0 Hct 44.1 MCV 89.5 MCH 30.4 MCHC 34.0 RDW 13.2 Plt Count 342 MPV 7.9 Neut % (Auto) 57.8 Lymph % (Auto) 21.5 Brooks % (Auto) 18.7 H Eos % (Auto) 1.8 Baso % (Auto) 0.2 Neut # (Auto) 4.3 Lymph # (Auto) 1.6 Brooks # (Auto) 1.4 H Eos # (Auto) 0.1 Baso # (Auto) 0.0 WBC Differential . Differential Comment Auto diff final Sodium 141 Potassium 4.0 Chloride 110 H Carbon Dioxide 21.2 Anion Gap 10 BUN 30 H Creatinine 1.79 H Estimated GFR 40 L POC Glucose 86 Random Glucose 91 Calcium 8.0 L Phosphorus 3.4 Magnesium 2.1 Total Bilirubin 0.4 AST 10 L ALT 26 Alkaline Phosphatase 77 Total Protein 8.2 D Albumin 3.1 L Lipase 271 Stl C.difficile DNA Amp St C. diff Tox Epid 027 08/20/18 08/20/18 07:59 11:57 WBC RBC Hgb Hct MCV MCH MCHC RDW Plt Count MPV Neut % (Auto) Lymph % (Auto) Brooks % (Auto) Eos % (Auto) Baso % (Auto) Neut # (Auto) Lymph # (Auto) Brooks # (Auto) Eos # (Auto) Baso # (Auto) WBC Differential Differential Comment Sodium Potassium Chloride Carbon Dioxide Anion Gap BUN Creatinine Estimated GFR POC Glucose 89 74 Random Glucose Calcium Phosphorus Magnesium Total Bilirubin AST ALT Alkaline Phosphatase Total Protein Albumin Lipase Stl C.difficile DNA Amp St C. diff Tox Epid 027 - Imaging Impressions Abdomen X-Ray 08/20/18 00:00 CONCLUSION: Improved bowel gas pattern Assessment and Plan - Plan Abdominal pain and distention -Recently out of the country in [place] and [place] on a cruise ship -Stool for enteric pathogens Rule out vibrio versus NOROvirus rule out CDT colitis Place NG tube Abdominal pain with nausea and vomiting -Place NG tube IF STILL VOMITING Diabetes mellitus Sliding scale coverage with Accu-Cheks before meals and at bedtime Hypertension Resume home medications Chronic NSAID use will undergo an EGD and colonoscopy with gastroenterology ON 08-20 Family history of colon cancer Dehydration/renal insufficiency Possibly secondary to nausea and vomiting Has chronic SHADIA inhibitor and chronic metformin will hold both Code Status: FULL CODE Discussed Condition With: RN AND PT AND CM Discharge Planning: Pending improvement
--- NOTE | 2018-08-20 14:33 | ECG ---
Date Performed: 08/20/2018 Time Performed: 13:42:37 PTAGE: 53 years EKG: Sinus rhythm INTRAVENTRICULAR CONDUCTION DELAY ABNORMAL ECG Compared to prior electrocardiogram, QRS has widened. PREVIOUS TRACING : 07/17/2017 19.09 DOCTOR: Anibal aTylor Interpretating Date/Time 08/20/2018 14:32:47
[2018-08-20] MEDS ORDERED: Chlorhexidine Gluconate 2% 1 Pack (2 Cloths) TOPICAL ONE (15:04)
[2018-08-20] MEDS ORDERED: Metoprolol Tartrate 25 MG Tablet PO ONE (15:04)
--- NOTE | 2018-08-20 15:50 | P.PCN ---
Date of procedure: 08/20/18 Pre-op diagnosis: Abdominal pain, nausea and vomiting, diarrhea Procedure: PROCEDURE PERFORMED EGD with biopsy followed by a colonoscopy with biopsy PROCEDURE: The procedure, risks and benefits were discussed with Patient/POA and informed consent was obtained. Anesthesia sedated Patient with Diprivan. Patient was placed in the left lateral decubitus position. EGD: The Pentax videoscope was introduced through the oropharynx and advanced to the second portion of the duodenum under direct visualization. Retroflexion was performed in the stomach. FINDINGS: The esophagus this appeared to be unremarkable and within normal limits The stomach there was some nodularity noted in the gastric body polypoid-like projections of unclear significance these were biopsied otherwise gastric mucosa unremarkable no ulcers and no erosions The duodenum this looked normal random biopsies were taken for further evaluation of diarrhea Colonoscopy: The Pentax videoscope was introduced through the rectum and advanced to cecum where the ileocecal valve and appendiceal orifice were identified. Retroflexion was performed in the rectum. Colonic prep was fair FINDINGS: Colonic withdrawal time greater than 6 minutes. As the scope was slowly withdrawn colonic mucosa was carefully inspected the colonic mucosa appeared to be unremarkable and within normal limits all the way through random biopsies were taken from the ascending and descending colon retroflexion in the rectum and rectal examination were also normal ESTIMATED BLOOD LOSS: None SPECIMENS REMOVED: Gastric and colon biopsies COMPLICATIONS: None IMPRESSION: Nodular gastritis Normal colonoscopy PLAN: Await biopsies Advance diet as tolerated Most likely etiology for the patient's symptoms is probable viral gastroenteritis If all is stable tomorrow and patient is tolerating intake patient may be discharged from a GI perspective Anesthesia: MAC Surgeon: Edwar Isabel Condition: stable Disposition: floor
[2018-08-20] MEDS ORDERED: Sodium Chlor 0.9% Inj 500 ML IV.SIG SCH (16:00)
--- NOTE | 2018-08-20 19:17 | P.PNGS ---
Subjective Patient reports: still having pain (had vomiting yesterday, diarrhea) Physical Exam Vital signs: Vital Signs 08/19/18 20:00 08/20/18 00:00 08/20/18 08:00 Temperature 98.1 F 97.6 F 97.0 F L Pulse Rate 91 H 88 75 Respiratory Rate 17 17 17 Blood Pressure 138/78 110/65 109/58 L Pulse Oximetry 94 L 93 L 97 08/20/18 11:50 08/20/18 15:56 Temperature 97.1 F L 97.1 F L Pulse Rate 86 80 Respiratory Rate 18 18 Blood Pressure 138/90 138/73 Pulse Oximetry 97 95 Intake & Output 08/20/18 08/20/18 08/21/18 06:59 18:59 06:59 Intake Total 2500 / 2500 1000 / 1000 Balance 2500 / 2500 1000 / 1000 Weight 134.8 kg Intake: IV 1999 / 1999 1000 / 1000 NS Inj 1,000 ML @ 125 mls/hr IV 1999 / 1999 1000 / 1000 .CONT .Q8H GEOVANNY Rx#:[id number] Oral 500 / 500 Other: # Voids 3 4 Date of Last Bowel Movement 08/20/18 # Bowel Movements 2 1 - Routine Respiratory Exam Present: CTA bilaterally - Routine Cardiovascular Exam Present: RRR - Routine Abdominal Exam Present: soft, distended Results - Labs 08/20/18 04:19 08/20/18 04:19 Laboratory Results - last 24 hr 08/19/18 08/19/18 08/20/18 19:37 20:34 04:19 WBC 7.4 RBC 4.93 Hgb 15.0 Hct 44.1 MCV 89.5 MCH 30.4 MCHC 34.0 RDW 13.2 Plt Count 342 MPV 7.9 Neut % (Auto) 57.8 Lymph % (Auto) 21.5 [place] % (Auto) 18.7 H Eos % (Auto) 1.8 Baso % (Auto) 0.2 Neut # (Auto) 4.3 Lymph # (Auto) 1.6 [place] # (Auto) 1.4 H Eos # (Auto) 0.1 Baso # (Auto) 0.0 WBC Differential . Differential Comment Auto diff final Sodium Potassium Chloride Carbon Dioxide Anion Gap BUN Creatinine Estimated GFR POC Glucose 86 Random Glucose Calcium Phosphorus Magnesium Total Bilirubin AST ALT Alkaline Phosphatase Total Protein Albumin Lipase Stl C.difficile DNA Amp Negative St C. diff Tox Epid 027 Negative 08/20/18 08/20/18 08/20/18 04:19 07:59 11:57 WBC RBC Hgb Hct MCV MCH MCHC RDW Plt Count MPV Neut % (Auto) Lymph % (Auto) [place] % (Auto) Eos % (Auto) Baso % (Auto) Neut # (Auto) Lymph # (Auto) [place] # (Auto) Eos # (Auto) Baso # (Auto) WBC Differential Differential Comment Sodium 141 Potassium 4.0 Chloride 110 H Carbon Dioxide 21.2 Anion Gap 10 BUN 30 H Creatinine 1.79 H Estimated GFR 40 L POC Glucose 89 74 Random Glucose 91 Calcium 8.0 L Phosphorus 3.4 Magnesium 2.1 Total Bilirubin 0.4 AST 10 L ALT 26 Alkaline Phosphatase 77 Total Protein 8.2 D Albumin 3.1 L Lipase 271 Stl C.difficile DNA Amp St C. diff Tox Epid 027 08/20/18 16:58 WBC RBC Hgb Hct MCV MCH MCHC RDW Plt Count MPV Neut % (Auto) Lymph % (Auto) [place] % (Auto) Eos % (Auto) Baso % (Auto) Neut # (Auto) Lymph # (Auto) [place] # (Auto) Eos # (Auto) Baso # (Auto) WBC Differential Differential Comment Sodium Potassium Chloride Carbon Dioxide Anion Gap BUN Creatinine Estimated GFR POC Glucose 72 Random Glucose Calcium Phosphorus Magnesium Total Bilirubin AST ALT Alkaline Phosphatase Total Protein Albumin Lipase Stl C.difficile DNA Amp St C. diff Tox Epid 027 - Imaging Imaging: ITS Impressions Abdomen X-Ray 08/20/18 00:00 CONCLUSION: Improved bowel gas pattern Assessment and Plan - Plan ileus vs obstruction. More likely enteritis with ileus PLAN Recommend NG tube if vomiting again await GI recs continue abdominal exams consider sbft pending gi findings will follow
[2018-08-21] MEDS ORDERED: Pantoprazole Sodium 20 MG DR Tablet PO ONE (00:15)
[2018-08-21] MEDS: Sod Chloride 0.9% Inj 1,000 ML IV.CONT SCH ×3 (02:51→11:02)
[2018-08-21] MEDS: Insulin NovoLOG Aspart Correctional Sugar Inj SQ SCH ×3 (04:04→12:42)
[2018-08-21 08:34] LABS: Baso % (Auto) 0.3 % (0.0-2.0); Eos # (Auto) 0.1 th/mm3 (0.0-0.4); Eos % (Auto) 1.6 % (0.0-4.0); Hemoglobin 14.6 gm/dL (13.0-17.0); Lymph # (Auto) 1.3 th/mm3 (1.0-4.8); Lymph % (Auto) 15.7 % (9.0-44.0); Mean Corpuscular HGB Conc 35.7 % (32.0-36.0); Mean Corpuscular Hemoglobin 31.5 pg (27.0-34.0); Mean Corpuscular Volume 88.4 fL (80.0-100.0); Mean Platelet Volume 7.7 fL (7.0-11.0); Mono # (Auto) 1.3 th/mm3 (0.0-0.9); Neut # (Auto) 5.7 th/mm3 (1.8-7.7); Neut % (Auto) 67.4 % (16.0-70.0); Platelet Count 317 th/mm3 (150-450); Red Blood Count 4.64 mil/mm3 (4.50-5.90); Red Cell Distribution Width 13.1 % (11.6-17.2); White Blood Count 8.4 th/mm3 (4.0-11.0)
[2018-08-21 09:00] LABS: Albumin 3.1 g/dL (3.4-5.0); Anion Gap 9 meq/L (5-15); Aspartate Aminotransferase 8 U/L (15-37); Blood Urea Nitrogen 20 mg/dL (7-18); Calcium 8.4 mg/dL (8.5-10.1); Carbon Dioxide 22.1 meq/L (21.0-32.0); Chloride 110 meq/L (98-107); Glomerular Filtration Rate 57 mL/min (>89); Glucose,Random 91 mg/dL (74-106); Magnesium 2.3 mg/dL (1.5-2.5); Potassium 3.8 meq/L (3.5-5.1); Sodium 141 meq/L (136-145)
[2018-08-21 09:04] LABS: Alanine Aminotransferase 24 U/L (12-78); Alkaline Phosphatase 71 U/L (45-117); Phosphorus 2.8 mg/dL (2.5-4.9); Total Protein 8.2 g/dL (6.4-8.2)
--- NOTE | 2018-08-21 12:07 | P.PNGS ---
Subjective Patient reports: bowel movement (c/o reflux) Physical Exam Vital signs: Vital Signs 08/20/18 15:56 08/20/18 20:00 08/21/18 00:00 Temperature 97.1 F L 97.2 F L 98.1 F Pulse Rate 80 84 87 Respiratory Rate 18 17 17 Blood Pressure 138/73 150/83 H 154/83 H Pulse Oximetry 95 98 93 L 08/21/18 04:00 08/21/18 08:00 Temperature 98.0 F 97.8 F Pulse Rate 78 77 Respiratory Rate 20 17 Blood Pressure 128/78 137/73 Pulse Oximetry 96 97 Intake & Output 08/20/18 08/21/18 08/21/18 18:59 06:59 18:59 Intake Total 1000 / 1000 900 / 900 1000 / 1000 Balance 1000 / 1000 900 / 900 1000 / 1000 Weight 132.7 kg Intake: IV 1000 / 1000 1000 / 1000 NS Inj 1,000 ML @ 125 mls/hr IV 1000 / 1000 1000 / 1000 .CONT .Q8H GEOVANNY Rx#:[id number] Oral 900 / 900 Other: # Voids 4 4 Date of Last Bowel Movement 08/20/18 # Bowel Movements 1 4 - Routine Respiratory Exam Present: CTA bilaterally - Routine Cardiovascular Exam Present: RRR - Routine Abdominal Exam Present: soft (mild distension, non tender ) Results - Labs 08/21/18 07:08 08/21/18 07:08 Laboratory Results - last 24 hr 08/20/18 08/20/18 08/21/18 16:58 20:31 02:53 WBC RBC Hgb Hct MCV MCH MCHC RDW Plt Count MPV Neut % (Auto) Lymph % (Auto) [place] % (Auto) Eos % (Auto) Baso % (Auto) Neut # (Auto) Lymph # (Auto) [place] # (Auto) Eos # (Auto) Baso # (Auto) WBC Differential Differential Comment Sodium Potassium Chloride Carbon Dioxide Anion Gap BUN Creatinine Estimated GFR POC Glucose 72 77 111 H Random Glucose Calcium Phosphorus Magnesium Total Bilirubin AST ALT Alkaline Phosphatase Total Protein Albumin 08/21/18 08/21/18 08/21/18 07:08 07:08 09:15 WBC 8.4 RBC 4.64 Hgb 14.6 Hct 41.0 MCV 88.4 MCH 31.5 MCHC 35.7 RDW 13.1 Plt Count 317 MPV 7.7 Neut % (Auto) 67.4 Lymph % (Auto) 15.7 [place] % (Auto) 15.0 H Eos % (Auto) 1.6 Baso % (Auto) 0.3 Neut # (Auto) 5.7 Lymph # (Auto) 1.3 [place] # (Auto) 1.3 H Eos # (Auto) 0.1 Baso # (Auto) 0.0 WBC Differential . Differential Comment Auto diff final Sodium 141 Potassium 3.8 Chloride 110 H Carbon Dioxide 22.1 Anion Gap 9 BUN 20 H Creatinine 1.31 H Estimated GFR 57 L POC Glucose 84 Random Glucose 91 Calcium 8.4 L Phosphorus 2.8 Magnesium 2.3 Total Bilirubin 0.3 AST 8 L ALT 24 Alkaline Phosphatase 71 Total Protein 8.2 Albumin 3.1 L - Imaging Imaging: ITS Impressions Abdomen X-Ray 08/20/18 00:00 CONCLUSION: Improved bowel gas pattern Assessment and Plan - Plan ileus vs obstruction. More likely enteritis with ileus PLAN await GI recs, s/p egd, colonoscopy with gastritis pt tolerating cardiac diet, still with diarrhea feels better d/c planning per surgery
[2018-08-21 13:05] VITALS: BP 141/86; PULSE 84; RESP 18; TEMP 97.6; O2SAT 95
--- NOTE | 2018-08-21 13:28 | P.PNIM ---
Subjective Interval history: Chief Complaint: ABDOMINAL PAIN History of Present Illness: Patient is a 53-year-old gentleman who presented to the emergency department at [place] for abdominal pain for at least 7 days. Patient had recently been at [facility] in [place] and was hospitalized there for at least 3 days he states. He had also states that he had been on a cruise ship and upon returning home he had symptoms since that he has had pain in his epigastric region but does not really radiate. He reports some nausea some vomiting but has not had any recently. Patient was seen at [facility] 3 days ago. And he states they could not find anything wrong with him. Continues to have abdominal pain and therefore came to the [facility] emergency department for evaluation. Patient's past medical history is significant for diabetes and hypertension and alcohol abuse Family history is positive for father having colon cancer and mother having heart attack as well as diabetes and hypertension in the family Patient has been admitted. Surgery has been consulted. We will continue pain medications and fluids. Patient states he has lost 20 pounds in the past few days to week 08-20 to undergo EGD AND COLONOSCOPY TODAY DW RN AND PT NO MORE VOMITING DW RN AND PT DENIES ANYMORE DIARRHEA AM LABS INCREASE ACTIVITY 08-21 HAD EGD YESTERDAY WITH NODULAR GASTRITIS AND HAD COLONOSCOPY BIOPSIES TAKEN HAVING GERD/ACID DC TO HOME WITH PROTONIX AND CARAFATE FOLLOW UP GI AND PCP AND SURGERY HAS SOME DIARRHEA MEDS ADJUSTED BY GI DC TO HOME Physical Exam Vital signs: Vital Signs 08/20/18 15:56 08/20/18 20:00 08/21/18 00:00 Temperature 97.1 F L 97.2 F L 98.1 F Pulse Rate 80 84 87 Respiratory Rate 18 17 17 Blood Pressure 138/73 150/83 H 154/83 H Pulse Oximetry 95 98 93 L 08/21/18 04:00 08/21/18 08:00 08/21/18 12:00 Temperature 98.0 F 97.8 F 97.6 F Pulse Rate 78 77 84 Respiratory Rate 20 17 18 Blood Pressure 128/78 137/73 141/86 H Pulse Oximetry 96 97 95 Intake & Output 08/20/18 08/21/18 08/21/18 18:59 06:59 18:59 Intake Total 1000 / 1000 900 / 900 1000 / 1000 Balance 1000 / 1000 900 / 900 1000 / 1000 Weight 132.7 kg Intake: IV 1000 / 1000 1000 / 1000 NS Inj 1,000 ML @ 125 mls/hr IV 1000 / 1000 1000 / 1000 .CONT .Q8H GEOVANNY Rx#:[id number] Oral 900 / 900 Other: # Voids 4 4 Date of Last Bowel Movement 08/20/18 # Bowel Movements 1 4 Narrative: GENERAL: Awake alert oriented talkative and cooperative in moderate distress SKIN: Warm and dry. HEAD: Atraumatic. Normocephalic. EYES: Pupils equal and round. No scleral icterus. No injection or drainage. EOMI ENT: No nasal bleeding or discharge. Mucous membranes pink and moist. Tongue is midline NECK: Trachea midline. No JVD. Neck is supple CARDIOVASCULAR: Regular rate and rhythm. S1-S2 no S3 or S4 RESPIRATORY: No accessory muscle use. Clear to auscultation. Breath sounds equal bilaterally. GASTROINTESTINAL: Hepatic and splenic margins not palpable. Distended obese NO tenderness MUSCULOSKELETAL: Extremities without clubbing, cyanosis, or edema. No obvious deformities. NEUROLOGICAL: Awake and alert. No obvious cranial nerve deficits. Motor grossly within normal limits. Five out of 5 muscle strength in the arms and legs. Normal speech. PSYCHIATRIC: Appropriate mood and affect; insight and judgment normal. Results - Labs CBC & Chem 7: 08/21/18 07:08 08/21/18 07:08 Laboratory Results - last 24 hr 08/20/18 08/20/18 08/21/18 16:58 20:31 02:53 WBC RBC Hgb Hct MCV MCH MCHC RDW Plt Count MPV Neut % (Auto) Lymph % (Auto) [place] % (Auto) Eos % (Auto) Baso % (Auto) Neut # (Auto) Lymph # (Auto) [place] # (Auto) Eos # (Auto) Baso # (Auto) WBC Differential Differential Comment Sodium Potassium Chloride Carbon Dioxide Anion Gap BUN Creatinine Estimated GFR POC Glucose 72 77 111 H Random Glucose Calcium Phosphorus Magnesium Total Bilirubin AST ALT Alkaline Phosphatase Total Protein Albumin 08/21/18 08/21/18 08/21/18 07:08 07:08 09:15 WBC 8.4 RBC 4.64 Hgb 14.6 Hct 41.0 MCV 88.4 MCH 31.5 MCHC 35.7 RDW 13.1 Plt Count 317 MPV 7.7 Neut % (Auto) 67.4 Lymph % (Auto) 15.7 [place] % (Auto) 15.0 H Eos % (Auto) 1.6 Baso % (Auto) 0.3 Neut # (Auto) 5.7 Lymph # (Auto) 1.3 [place] # (Auto) 1.3 H Eos # (Auto) 0.1 Baso # (Auto) 0.0 WBC Differential . Differential Comment Auto diff final Sodium 141 Potassium 3.8 Chloride 110 H Carbon Dioxide 22.1 Anion Gap 9 BUN 20 H Creatinine 1.31 H Estimated GFR 57 L POC Glucose 84 Random Glucose 91 Calcium 8.4 L Phosphorus 2.8 Magnesium 2.3 Total Bilirubin 0.3 AST 8 L ALT 24 Alkaline Phosphatase 71 Total Protein 8.2 Albumin 3.1 L 08/21/18 12:42 WBC RBC Hgb Hct MCV MCH MCHC RDW Plt Count MPV Neut % (Auto) Lymph % (Auto) [place] % (Auto) Eos % (Auto) Baso % (Auto) Neut # (Auto) Lymph # (Auto) [place] # (Auto) Eos # (Auto) Baso # (Auto) WBC Differential Differential Comment Sodium Potassium Chloride Carbon Dioxide Anion Gap BUN Creatinine Estimated GFR POC Glucose 88 Random Glucose Calcium Phosphorus Magnesium Total Bilirubin AST ALT Alkaline Phosphatase Total Protein Albumin Microbiology 08/19/18 19:37 Stool Enteric Pathogens (PCR) - Final No enteric pathogens detected by PCR (No Salmonella sp., Shigella sp., Campylobacter sp., Yersinia enterocolitica, Vibrio sp., Norovirus, or EHEC (Shiga Toxin 1 or Shiga Toxin 2) detected. - Imaging ITS Impressions Abdomen X-Ray 08/20/18 00:00 CONCLUSION: Improved bowel gas pattern - Procedures Patient: Shine Murguia MR#: [id number] : 1965 Acct: [id number] Age/Sex: 53 / M ADM Date: 08/19/18 Loc: N07 1703-A Report Date: 08/20/[address]: Siva Sainz DO cc: Date of procedure: 08/20/18 Pre-op diagnosis: Abdominal pain, nausea and vomiting, diarrhea Procedure: PROCEDURE PERFORMED EGD with biopsy followed by a colonoscopy with biopsy PROCEDURE: The procedure, risks and benefits were discussed with Patient/POA and informed consent was obtained. Anesthesia sedated Patient with Diprivan. Patient was placed in the left lateral decubitus position. EGD: The Pentax videoscope was introduced through the oropharynx and advanced to the second portion of the duodenum under direct visualization. Retroflexion was performed in the stomach. FINDINGS: The esophagus this appeared to be unremarkable and within normal limits The stomach there was some nodularity noted in the gastric body polypoid-like projections of unclear significance these were biopsied otherwise gastric mucosa unremarkable no ulcers and no erosions The duodenum this looked normal random biopsies were taken for further evaluation of diarrhea Colonoscopy: The Pentax videoscope was introduced through the rectum and advanced to cecum where the ileocecal valve and appendiceal orifice were identified. Retroflexion was performed in the rectum. Colonic prep was fair FINDINGS: Colonic withdrawal time greater than 6 minutes. As the scope was slowly withdrawn colonic mucosa was carefully inspected the colonic mucosa appeared to be unremarkable and within normal limits all the way through random biopsies were taken from the ascending and descending colon retroflexion in the rectum and rectal examination were also normal ESTIMATED BLOOD LOSS: None SPECIMENS REMOVED: Gastric and colon biopsies COMPLICATIONS: None IMPRESSION: Nodular gastritis Normal colonoscopy PLAN: Await biopsies Advance diet as tolerated Most likely etiology for the patient's symptoms is probable viral gastroenteritis If all is stable tomorrow and patient is tolerating intake patient may be discharged from a GI perspective Anesthesia: MAC Surgeon: Edwar Isabel Condition: stable Disposition: floor Documented By: Edwar Isabel MD 08/20/18 [id number] Signed By: <Electronically signed by Edwar Isabel MD> Assessment and Plan - Plan Abdominal pain and distention -Recently out of the country in [place] and [place] on a cruise ship -Stool for enteric pathogens Rule out vibrio versus NOROvirus rule out CDT colitis- SO NO GROWTH DID NOT NEED NG tube Abdominal pain with nausea and vomiting -RESOLVED Diabetes mellitus Sliding scale coverage with Accu-Cheks before meals and at bedtime Hypertension Resume home medications Chronic NSAID use will undergo an EGD and colonoscopy with gastroenterology ON 08-20 Family history of colon cancer Dehydration/renal insufficiency Possibly secondary to nausea and vomiting Has chronic SHADIA inhibitor and chronic metformin will hold both STILL HAVING SOME ABDOMINAL PAIN AND DIARRHEA WANTS TO GO HOME DC TO HOME TODAY RX WRITTEN Code Status: FULL CODE Discussed Condition With: RN AND PT AND GI Discharge Planning: DC TO HOME TODAY
--- NOTE | 2018-08-21 13:35 | P.PNGI ---
Subjective Interval history: Pt in bedside chair Still having diarrhea Denies nausea, vomiting Denies abdominal pain Tolerating regular diet <Camila Byrne - Last Filed: 08/21/18 13:31> Physical Exam Vital signs: Vital Signs 08/20/18 15:56 08/20/18 20:00 08/21/18 00:00 Temperature 97.1 F L 97.2 F L 98.1 F Pulse Rate 80 84 87 Respiratory Rate 18 17 17 Blood Pressure 138/73 150/83 H 154/83 H Pulse Oximetry 95 98 93 L 08/21/18 04:00 08/21/18 08:00 08/21/18 12:00 Temperature 98.0 F 97.8 F 97.6 F Pulse Rate 78 77 84 Respiratory Rate 20 17 18 Blood Pressure 128/78 137/73 141/86 H Pulse Oximetry 96 97 95 Intake & Output 08/20/18 08/21/18 08/21/18 18:59 06:59 18:59 Intake Total 1000 / 1000 900 / 900 1000 / 1000 Balance 1000 / 1000 900 / 900 1000 / 1000 Weight 132.7 kg Intake: IV 1000 / 1000 1000 / 1000 NS Inj 1,000 ML @ 125 mls/hr IV 1000 / 1000 1000 / [address] [facility] Rx#:[id number] Oral 900 / 900 Other: # Voids 4 4 Date of Last Bowel Movement 08/20/18 # Bowel Movements 1 4 - Constitutional no acute distress - Routine HEENT Exam Head: Present: normocephalic, atraumatic - Routine Respiratory Exam Absent: accessory muscle use - Routine Abdominal Exam Present: soft, normoactive bowel sounds. Absent: tenderness, distended - Routine Skin Exam Present: dry, warm - Routine Neurological Exam Present: alert, oriented X3 <Camila Byrne - Last Filed: 08/21/18 13:31> Vital signs: Vital Signs 08/21/18 00:00 08/21/18 04:00 08/21/18 08:00 Temperature 98.1 F 98.0 F 97.8 F Pulse Rate 87 78 77 Respiratory Rate 17 20 17 Blood Pressure 154/83 H 128/78 137/73 Pulse Oximetry 93 L 96 97 08/21/18 12:00 Temperature 97.6 F Pulse Rate 84 Respiratory Rate 18 Blood Pressure 141/86 H Pulse Oximetry 95 Intake & Output 08/21/18 08/21/18 08/22/18 06:59 18:59 06:59 Intake Total 900 / 900 1000 / 1000 Balance 900 / 900 1000 / 1000 Weight 132.7 kg Intake: IV 1000 / 1000 NS Inj 1,000 ML @ 125 mls/hr IV 1000 / 1000 .CONT .Q8H [facility] Rx#:[id number] Oral 900 / 900 Other: # Voids 4 # Bowel Movements 4 <Edwar Isabel E - Last Filed: 08/21/18 20:58> Results - Labs CBC & Chem 7: 08/21/18 07:08 08/21/18 07:08 Laboratory Results - last 24 hr 08/20/18 08/20/18 08/21/18 16:58 20:31 02:53 WBC RBC Hgb Hct MCV MCH MCHC RDW Plt Count MPV Neut % (Auto) Lymph % (Auto) Crane % (Auto) Eos % (Auto) Baso % (Auto) Neut # (Auto) Lymph # (Auto) Crane # (Auto) Eos # (Auto) Baso # (Auto) WBC Differential Differential Comment Sodium Potassium Chloride Carbon Dioxide Anion Gap BUN Creatinine Estimated GFR POC Glucose 72 77 111 H Random Glucose Calcium Phosphorus Magnesium Total Bilirubin AST ALT Alkaline Phosphatase Total Protein Albumin 08/21/18 08/21/18 08/21/18 07:08 07:08 09:15 WBC 8.4 RBC 4.64 Hgb 14.6 Hct 41.0 MCV 88.4 MCH 31.5 MCHC 35.7 RDW 13.1 Plt Count 317 MPV 7.7 Neut % (Auto) 67.4 Lymph % (Auto) 15.7 Crane % (Auto) 15.0 H Eos % (Auto) 1.6 Baso % (Auto) 0.3 Neut # (Auto) 5.7 Lymph # (Auto) 1.3 Crane # (Auto) 1.3 H Eos # (Auto) 0.1 Baso # (Auto) 0.0 WBC Differential . Differential Comment Auto diff final Sodium 141 Potassium 3.8 Chloride 110 H Carbon Dioxide 22.1 Anion Gap 9 BUN 20 H Creatinine 1.31 H Estimated GFR 57 L POC Glucose 84 Random Glucose 91 Calcium 8.4 L Phosphorus 2.8 Magnesium 2.3 Total Bilirubin 0.3 AST 8 L ALT 24 Alkaline Phosphatase 71 Total Protein 8.2 Albumin 3.1 L 08/21/18 12:42 WBC RBC Hgb Hct MCV MCH MCHC RDW Plt Count MPV Neut % (Auto) Lymph % (Auto) Crane % (Auto) Eos % (Auto) Baso % (Auto) Neut # (Auto) Lymph # (Auto) Crane # (Auto) Eos # (Auto) Baso # (Auto) WBC Differential Differential Comment Sodium Potassium Chloride Carbon Dioxide Anion Gap BUN Creatinine Estimated GFR POC Glucose 88 Random Glucose Calcium Phosphorus Magnesium Total Bilirubin AST ALT Alkaline Phosphatase Total Protein Albumin Microbiology 08/19/18 19:37 Stool Enteric Pathogens (PCR) - Final No enteric pathogens detected by PCR (No Salmonella sp., Shigella sp., Campylobacter sp., Yersinia enterocolitica, Vibrio sp., Norovirus, or EHEC (Shiga Toxin 1 or Shiga Toxin 2) detected. - Procedures Patient: Shine Murguia MR#: [id number] : 1965 Acct: [id number] Age/Sex: 53 / M ADM Date: 08/19/18 Loc: N07 1703-A Report Date: 08/20/[address]: Siva Sainz DO cc: Date of procedure: 08/20/18 Pre-op diagnosis: Abdominal pain, nausea and vomiting, diarrhea Procedure: PROCEDURE PERFORMED EGD with biopsy followed by a colonoscopy with biopsy PROCEDURE: The procedure, risks and benefits were discussed with Patient/POA and informed consent was obtained. Anesthesia sedated Patient with Diprivan. Patient was placed in the left lateral decubitus position. EGD: The Pentax videoscope was introduced through the oropharynx and advanced to the second portion of the duodenum under direct visualization. Retroflexion was performed in the stomach. FINDINGS: The esophagus this appeared to be unremarkable and within normal limits The stomach there was some nodularity noted in the gastric body polypoid-like projections of unclear significance these were biopsied otherwise gastric mucosa unremarkable no ulcers and no erosions The duodenum this looked normal random biopsies were taken for further evaluation of diarrhea Colonoscopy: The Pentax videoscope was introduced through the rectum and advanced to cecum where the ileocecal valve and appendiceal orifice were identified. Retroflexion was performed in the rectum. Colonic prep was fair FINDINGS: Colonic withdrawal time greater than 6 minutes. As the scope was slowly withdrawn colonic mucosa was carefully inspected the colonic mucosa appeared to be unremarkable and within normal limits all the way through random biopsies were taken from the ascending and descending colon retroflexion in the rectum and rectal examination were also normal ESTIMATED BLOOD LOSS: None SPECIMENS REMOVED: Gastric and colon biopsies COMPLICATIONS: None IMPRESSION: Nodular gastritis Normal colonoscopy PLAN: Await biopsies Advance diet as tolerated Most likely etiology for the patient's symptoms is probable viral gastroenteritis If all is stable tomorrow and patient is tolerating intake patient may be discharged from a GI perspective Anesthesia: MAC Surgeon: Edwar Isabel Condition: stable Disposition: floor Documented By: Edwar Isabel MD 08/20/18 1547 Signed By: <Electronically signed by Edwar Isaebl MD> <Camila Byrne - Last Filed: 08/21/18 13:31> - Labs CBC & Chem 7: 08/21/18 07:08 08/21/18 07:08 Laboratory Results - last 24 hr 08/21/18 08/21/18 08/21/18 02:53 07:08 07:08 WBC 8.4 RBC 4.64 Hgb 14.6 Hct 41.0 MCV 88.4 MCH 31.5 MCHC 35.7 RDW 13.1 Plt Count 317 MPV 7.7 Neut % (Auto) 67.4 Lymph % (Auto) 15.7 Crane % (Auto) 15.0 H Eos % (Auto) 1.6 Baso % (Auto) 0.3 Neut # (Auto) 5.7 Lymph # (Auto) 1.3 Crane # (Auto) 1.3 H Eos # (Auto) 0.1 Baso # (Auto) 0.0 WBC Differential . Differential Comment Auto diff final Sodium 141 Potassium 3.8 Chloride 110 H Carbon Dioxide 22.1 Anion Gap 9 BUN 20 H Creatinine 1.31 H Estimated GFR 57 L POC Glucose 111 H Random Glucose 91 Calcium 8.4 L Phosphorus 2.8 Magnesium 2.3 Total Bilirubin 0.3 AST 8 L ALT 24 Alkaline Phosphatase 71 Total Protein 8.2 Albumin 3.1 L 08/21/18 08/21/18 09:15 12:42 WBC RBC Hgb Hct MCV MCH MCHC RDW Plt Count MPV Neut % (Auto) Lymph % (Auto) Crane % (Auto) Eos % (Auto) Baso % (Auto) Neut # (Auto) Lymph # (Auto) Crane # (Auto) Eos # (Auto) Baso # (Auto) WBC Differential Differential Comment Sodium Potassium Chloride Carbon Dioxide Anion Gap BUN Creatinine Estimated GFR POC Glucose 84 88 Random Glucose Calcium Phosphorus Magnesium Total Bilirubin AST ALT Alkaline Phosphatase Total Protein Albumin <Edwar Isabel E - Last Filed: 08/21/18 20:58> Assessment and Plan - Plan Assessment: -Abdominal pain, nausea, vomiting, diarrhea- recent travel on a cruise. Stool studies negative for enteric pathogens, C. Diff negative. S/P EGD and colonoscopy EGD --> Normal esophagus. Nodularity in the gastric body, polypoid- like projections of unclear significant S.O biopsy, normal duodenum, random biopsies taken to evaluate diarrhea. Colonoscopy --> Normal Plan: Continue PPI EGD biopsy pending Add Cholestyramine Etiology likely viral gastroenteritis OK to DC from a GI standpoint Have pt follow up with GI after DC Pt has been seen and examined by myself and Dr. Isabel and this note is written on his behalf <Camila Byrne - Last Filed: 08/21/18 13:31> - Plan Patient seen and examined Agree with above Continue with current supportive care Monitor labs Follow-up with GI post discharge <Edwar Isabel - Last Filed: 08/21/18 20:58>
--- NOTE | 2018-08-21 15:15 | P.DS ---
Date of admission: 08/19/18 05:26 Primary care physician: Lenora Lynne Attending physician on discharge: Siva Sainz Anticipated date of discharge: 08/21/18 Brief History from admission: Patient is a 53-year-old gentleman who presented to the emergency department at [place] for abdominal pain for at least 7 days. Patient had recently been at [facility] in [place] and was hospitalized there for at least 3 days he states. He had also states that he had been on a cruise ship and upon returning home he had symptoms since that he has had pain in his epigastric region but does not really radiate. He reports some nausea some vomiting but has not had any recently. Patient was seen at [facility] 3 days ago. And he states they could not find anything wrong with him. Continues to have abdominal pain and therefore came to the [facility] emergency department for evaluation. Patient's past medical history is significant for diabetes and hypertension and alcohol abuse Family history is positive for father having colon cancer and mother having heart attack as well as diabetes and hypertension in the family Patient has been admitted. Surgery has been consulted. We will continue pain medications and fluids. Patient states he has lost 20 pounds in the past few days to week Patient update on day of discharge: Chief Complaint: ABDOMINAL PAIN History of Present Illness: Patient is a 53-year-old gentleman who presented to the emergency department at [place] for abdominal pain for at least 7 days. Patient had recently been at [facility] in [place] and was hospitalized there for at least 3 days he states. He had also states that he had been on a cruise ship and upon returning home he had symptoms since that he has had pain in his epigastric region but does not really radiate. He reports some nausea some vomiting but has not had any recently. Patient was seen at [facility] 3 days ago. And he states they could not find anything wrong with him. Continues to have abdominal pain and therefore came to the [facility] emergency department for evaluation. Patient's past medical history is significant for diabetes and hypertension and alcohol abuse Family history is positive for father having colon cancer and mother having heart attack as well as diabetes and hypertension in the family Patient has been admitted. Surgery has been consulted. We will continue pain medications and fluids. Patient states he has lost 20 pounds in the past few days to week 10-23 to undergo EGD AND COLONOSCOPY TODAY DW RN AND PT NO MORE VOMITING DW RN AND PT DENIES ANYMORE DIARRHEA AM LABS INCREASE ACTIVITY 10-24 HAD EGD YESTERDAY WITH NODULAR GASTRITIS AND HAD COLONOSCOPY BIOPSIES TAKEN HAVING GERD/ACID DC TO HOME WITH PROTONIX AND CARAFATE FOLLOW UP GI AND PCP AND SURGERY HAS SOME DIARRHEA MEDS ADJUSTED BY GI DC TO HOME DS: Diagnosis - Discharge Diagnosis (1) Abdominal pain Status: Acute (2) Nodularity of gastric antrum Status: Acute (3) Gastritis Status: Acute (4) Diarrhea Status: Acute (5) Hypertension Status: Chronic (6) Diabetes Status: Chronic (7) Alcohol abuse Status: Chronic (8) Arthritis Status: Chronic DS: Medications - Discharge Medications Prescriptions: calcium carbonate 500 mg CHEW Q2H PRN #100 tab PRN Reason: Abdominal Pain cholestyramine (with sugar) 4 gm PO BID #60 ea folic acid 1 mg PO DAILY #30 tab uvnfklitthln-epd-iifo-FA-vit K [Adults Multivitamin] 1 tab PO DAILY #30 tab ondansetron [Zofran ODT] 8 mg PO TID PRN #30 tab PRN Reason: Nausea oxycodone 5 mg PO Q4H PRN #18 tab PRN Reason: Acute Pain pantoprazole 40 mg PO Q12H #60 tab sucralfate [Carafate] 1 g PO Q6H #120 tab thiamine HCl (vitamin B1) 100 mg PO DAILY #30 tab DS: Summary Hospital Course: Chief Complaint: ABDOMINAL PAIN History of Present Illness: Patient is a 53-year-old gentleman who presented to the emergency department at [place] for abdominal pain for at least 7 days. Patient had recently been at [facility] in [place] and was hospitalized there for at least 3 days he states. He had also states that he had been on a cruise ship and upon returning home he had symptoms since that he has had pain in his epigastric region but does not really radiate. He reports some nausea some vomiting but has not had any recently. Patient was seen at [facility] 3 days ago. And he states they could not find anything wrong with him. Continues to have abdominal pain and therefore came to the [facility] emergency department for evaluation. Patient's past medical history is significant for diabetes and hypertension and alcohol abuse Family history is positive for father having colon cancer and mother having heart attack as well as diabetes and hypertension in the family Patient has been admitted. Surgery has been consulted. We will continue pain medications and fluids. Patient states he has lost 20 pounds in the past few days to week 08-20 to undergo EGD AND COLONOSCOPY TODAY DW RN AND PT NO MORE VOMITING DW RN AND PT DENIES ANYMORE DIARRHEA AM LABS INCREASE ACTIVITY 08-21 HAD EGD YESTERDAY WITH NODULAR GASTRITIS AND HAD COLONOSCOPY BIOPSIES TAKEN HAVING GERD/ACID DC TO HOME WITH PROTONIX AND CARAFATE FOLLOW UP GI AND PCP AND SURGERY HAS SOME DIARRHEA MEDS ADJUSTED BY GI DC TO HOME [facility] Prescription Drug Monitoring Database has been queried and verified prior to prescribing the controlled substance. Acute pain exception. This patient has normal, predicted, physiological, and time limited response to an adverse mechanical stimulus associated with surgery, trauma, or acute illness as described in my notes. There is a lack of alternative treatment options other than to include the prescribed narcotic treatment for this condition. EFORCSE VIEWED MEDS - Time Spent with Patient Total time spent providing and/or coordinating discharge services: Greater than 30 minutes - Quality: VTE Deep Vein Thrombosis/Pulmonary Embolism Present on Admission: No Exam Vital signs: Vital Signs 08/20/18 15:56 08/20/18 20:00 08/21/18 00:00 Temperature 97.1 F L 97.2 F L 98.1 F Pulse Rate 80 84 87 Respiratory Rate 18 17 17 Blood Pressure 138/73 150/83 H 154/83 H Pulse Oximetry 95 98 93 L 08/21/18 04:00 08/21/18 08:00 08/21/18 12:00 Temperature 98.0 F 97.8 F 97.6 F Pulse Rate 78 77 84 Respiratory Rate 20 17 18 Blood Pressure 128/78 137/73 141/86 H Pulse Oximetry 96 97 95 Intake & Output 08/20/18 08/21/18 08/21/18 18:59 06:59 18:59 Intake Total 1000 / 1000 900 / 900 1000 / 1000 Balance 1000 / 1000 900 / 900 1000 / 1000 Weight 132.7 kg Intake: IV 1000 / 1000 1000 / 1000 NS Inj 1,000 ML @ 125 mls/hr IV 1000 / 1000 1000 / 1000 .CONT .Q8H GEOVANNY Rx#:[id number] Oral 900 / 900 Other: # Voids 4 4 Date of Last Bowel Movement 08/20/18 # Bowel Movements 1 4 Narrative: GENERAL: Awake alert oriented talkative and cooperative in moderate distress SKIN: Warm and dry. HEAD: Atraumatic. Normocephalic. EYES: Pupils equal and round. No scleral icterus. No injection or drainage. EOMI ENT: No nasal bleeding or discharge. Mucous membranes pink and moist. Tongue is midline NECK: Trachea midline. No JVD. Neck is supple CARDIOVASCULAR: Regular rate and rhythm. S1-S2 no S3 or S4 RESPIRATORY: No accessory muscle use. Clear to auscultation. Breath sounds equal bilaterally. GASTROINTESTINAL: Hepatic and splenic margins not palpable. Distended obese NO tenderness MUSCULOSKELETAL: Extremities without clubbing, cyanosis, or edema. No obvious deformities. NEUROLOGICAL: Awake and alert. No obvious cranial nerve deficits. Motor grossly within normal limits. Five out of 5 muscle strength in the arms and legs. Normal speech. PSYCHIATRIC: Appropriate mood and affect; insight and judgment normal. Results Procedures completed during hospitalization: Patient: Shine Murguia MR#: [id number] : 1965 Acct: [id number] Age/Sex: 53 / M ADM Date: 08/19/18 Loc: N07 1703-A Report Date: 08/20/[address]: Siva Sainz DO cc: Date of procedure: 08/20/18 Pre-op diagnosis: Abdominal pain, nausea and vomiting, diarrhea Procedure: PROCEDURE PERFORMED EGD with biopsy followed by a colonoscopy with biopsy PROCEDURE: The procedure, risks and benefits were discussed with Patient/POA and informed consent was obtained. Anesthesia sedated Patient with Diprivan. Patient was placed in the left lateral decubitus position. EGD: The Pentax videoscope was introduced through the oropharynx and advanced to the second portion of the duodenum under direct visualization. Retroflexion was performed in the stomach. FINDINGS: The esophagus this appeared to be unremarkable and within normal limits The stomach there was some nodularity noted in the gastric body polypoid-like projections of unclear significance these were biopsied otherwise gastric mucosa unremarkable no ulcers and no erosions The duodenum this looked normal random biopsies were taken for further evaluation of diarrhea Colonoscopy: The Pentax videoscope was introduced through the rectum and advanced to cecum where the ileocecal valve and appendiceal orifice were identified. Retroflexion was performed in the rectum. Colonic prep was fair FINDINGS: Colonic withdrawal time greater than 6 minutes. As the scope was slowly withdrawn colonic mucosa was carefully inspected the colonic mucosa appeared to be unremarkable and within normal limits all the way through random biopsies were taken from the ascending and descending colon retroflexion in the rectum and rectal examination were also normal ESTIMATED BLOOD LOSS: None SPECIMENS REMOVED: Gastric and colon biopsies COMPLICATIONS: None IMPRESSION: Nodular gastritis Normal colonoscopy PLAN: Await biopsies Advance diet as tolerated Most likely etiology for the patient's symptoms is probable viral gastroenteritis If all is stable tomorrow and patient is tolerating intake patient may be discharged from a GI perspective Anesthesia: MAC Surgeon: Edwar Isabel Condition: stable Disposition: floor Documented By: Edwar Isabel MD 08/20/18 1548 Signed By: <Electronically signed by Edwar Isabel MD> Completed studies during hospitalization: Laboratory Results WBC 8.4 th/mm3 (4.0-11.0) 08/21/18 07:08 RBC 4.64 mil/mm3 (4.50-5.90) 08/21/18 07:08 Hgb 14.6 gm/dL (13.0-17.0) 08/21/18 07:08 Hct 41.0 % (39.0-51.0) 08/21/18 07:08 MCV 88.4 fL (80.0-100.0) 08/21/18 07:08 MCH 31.5 pg (27.0-34.0) 08/21/18 07:08 MCHC 35.7 % (32.0-36.0) 08/21/18 07:08 RDW 13.1 % (11.6-17.2) 08/21/18 07:08 Plt Count 317 th/mm3 (150-450) 08/21/18 07:08 MPV 7.7 fL (7.0-11.0) 08/21/18 07:08 Neut % (Auto) 67.4 % (16.0-70.0) 08/21/18 07:08 Lymph % (Auto) 15.7 % (9.0-44.0) 08/21/18 07:08 [place] % (Auto) 15.0 % (0.0-8.0) H 08/21/18 07:08 Eos % (Auto) 1.6 % (0.0-4.0) 08/21/18 07:08 Baso % (Auto) 0.3 % (0.0-2.0) 08/21/18 07:08 Neut # (Auto) 5.7 th/mm3 (1.8-7.7) 08/21/18 07:08 Lymph # (Auto) 1.3 th/mm3 (1.0-4.8) 08/21/18 07:08 [place] # (Auto) 1.3 th/mm3 (0.0-0.9) H 08/21/18 07:08 Eos # (Auto) 0.1 th/mm3 (0.0-0.4) 08/21/18 07:08 Baso # (Auto) 0.0 th/mm3 (0.0-0.2) 08/21/18 07:08 WBC Differential . 08/21/18 07:08 Differential Comment Auto diff final 08/21/18 07:08 Sodium 141 meq/L (136-145) 08/21/18 07:08 Potassium 3.8 meq/L (3.5-5.1) 08/21/18 07:08 Chloride 110 meq/L (98-107) H 08/21/18 07:08 Carbon Dioxide 22.1 meq/L (21.0-32.0) 08/21/18 07:08 Anion Gap 9 meq/L (5-15) 08/21/18 07:08 BUN 20 mg/dL (7-18) H 08/21/18 07:08 Creatinine 1.31 mg/dL (0.60-1.30) H 08/21/18 07:08 Estimated GFR 57 mL/min (>89) L 08/21/18 07:08 POC Glucose 88 mg/dl (68-110) 08/21/18 12:42 Random Glucose 91 mg/dL (74-106) 08/21/18 07:08 Calcium 8.4 mg/dL (8.5-10.1) L 08/21/18 07:08 Phosphorus 2.8 mg/dL (2.5-4.9) 08/21/18 07:08 Magnesium 2.3 mg/dL (1.5-2.5) 08/21/18 07:08 Total Bilirubin 0.3 mg/dL (0.2-1.0) 08/21/18 07:08 AST 8 U/L (15-37) L 08/21/18 07:08 ALT 24 U/L (12-78) 08/21/18 07:08 Alkaline Phosphatase 71 U/L (45-117) 08/21/18 07:08 Total Protein 8.2 g/dL (6.4-8.2) 08/21/18 07:08 Albumin 3.1 g/dL (3.4-5.0) L 08/21/18 07:08 Lipase 271 U/L (73-393) 08/20/18 04:19 Stl C.difficile DNA Amp Negative (Negative) 08/19/18 19:37 St C. diff Tox Epid 027 Negative (Negative) 08/19/18 19:37 Impressions Abdomen X-Ray 08/20/18 00:00 CONCLUSION: Improved bowel gas pattern Pending studies at discharge: Pending at discharge 08/20/18 07:39 Surgical [PTH] Routine Labs on day of discharge: Labs from last 24 hours 08/21/18 08/21/18 08/21/18 12:42 09:15 07:08 WBC RBC Hgb Hct MCV MCH MCHC RDW Plt Count MPV Neut % (Auto) Lymph % (Auto) [place] % (Auto) Eos % (Auto) Baso % (Auto) Neut # (Auto) Lymph # (Auto) [place] # (Auto) Eos # (Auto) Baso # (Auto) WBC Differential Differential Comment Sodium 141 Potassium 3.8 Chloride 110 H Carbon Dioxide 22.1 Anion Gap 9 BUN 20 H Creatinine 1.31 H Estimated GFR 57 L POC Glucose 88 84 Random Glucose 91 Calcium 8.4 L Phosphorus 2.8 Magnesium 2.3 Total Bilirubin 0.3 AST 8 L ALT 24 Alkaline Phosphatase 71 Total Protein 8.2 Albumin 3.1 L 08/21/18 08/21/18 08/20/18 07:08 02:53 20:31 WBC 8.4 RBC 4.64 Hgb 14.6 Hct 41.0 MCV 88.4 MCH 31.5 MCHC 35.7 RDW 13.1 Plt Count 317 MPV 7.7 Neut % (Auto) 67.4 Lymph % (Auto) 15.7 [place] % (Auto) 15.0 H Eos % (Auto) 1.6 Baso % (Auto) 0.3 Neut # (Auto) 5.7 Lymph # (Auto) 1.3 [place] # (Auto) 1.3 H Eos # (Auto) 0.1 Baso # (Auto) 0.0 WBC Differential . Differential Comment Auto diff final Sodium Potassium Chloride Carbon Dioxide Anion Gap BUN Creatinine Estimated GFR POC Glucose 111 H 77 Random Glucose Calcium Phosphorus Magnesium Total Bilirubin AST ALT Alkaline Phosphatase Total Protein Albumin 08/20/18 16:58 WBC RBC Hgb Hct MCV MCH MCHC RDW Plt Count MPV Neut % (Auto) Lymph % (Auto) [place] % (Auto) Eos % (Auto) Baso % (Auto) Neut # (Auto) Lymph # (Auto) [place] # (Auto) Eos # (Auto) Baso # (Auto) WBC Differential Differential Comment Sodium Potassium Chloride Carbon Dioxide Anion Gap BUN Creatinine Estimated GFR POC Glucose 72 Random Glucose Calcium Phosphorus Magnesium Total Bilirubin AST ALT Alkaline Phosphatase Total Protein Albumin - Impressions ITS Impressions Abdomen X-Ray 08/20/18 00:00 CONCLUSION: Improved bowel gas pattern Discharge Plan - Discharge Disposition Patient Disposition: Discharge Home - Discharge Condition Condition: Good - Discharge Order Discharge Orders: Discharge Order (Routine); Ordered 08/21/18 Ordered By: Siva Sainz - Discharge Details Anticipated Discharge Date: 08/21/18 Discharge Comment: DC TO HOME - Physicians Team Attending Provider: Siva Sainz Other Providers: Jaun Hurtado MD ; Surgeons,[facility] ; Edwar Isabel MD - Rxs /Orders / Referrals /Forms Prescriptions: New calcium carbonate 200 mg calcium (500 mg) Tablet,Chewable 500 mg CHEW Q2H PRN (Reason: Abdominal Pain) Qty: 100 RF: 0 cholestyramine (with sugar) 4 gram Powder In Packet 4 gm PO BID Qty: 60 RF: 0 folic acid 1 mg Tablet 1 mg PO DAILY Qty: 30 RF: 0 mskbtzbwwpgf-wom-yqhi-FA-vit K [Adults Multivitamin] 18 mg iron-400 mcg-25 mcg Tablet 1 tab PO DAILY Qty: 30 RF: 0 ondansetron [Zofran ODT] 8 mg Tablet,Disintegrating 8 mg PO TID PRN (Reason: Nausea) Qty: 30 RF: 0 oxycodone 5 mg Tablet 5 mg PO Q4H PRN (Reason: Acute Pain) Qty: 18 RF: 0 pantoprazole 40 mg Tablet,Delayed Release (Dr/Ec) 40 mg PO Q12H Qty: 60 RF: 0 sucralfate [Carafate] 1 gram Tablet 1 g PO Q6H Qty: 120 RF: 0 thiamine HCl (vitamin B1) 100 mg Tablet 100 mg PO DAILY Qty: 30 RF: 0 Continue losartan 25 mg Tablet 25 mg PO DAILY metformin 1,000 mg Tablet 1,000 mg PO DAILY Referrals: Lenora Lynne [Other] - See Instructions (FOLLOW UP IN 2 TO 3 DAYS) LENORA LYNNE [Other] - See Instructions (FOLLOW UP IN 2 TO 3 DAYS) Edwar Isabel MD [Physician] - See Instructions (2 WEEKS) - Discharge Instructions Patient Printed Instructions: Colonoscopy (DC)
== END 2018-08-21 18:38 | disposition home or self-care (01) ==
LOC: PHEDDLT 01:45 → N07 05:26
PROVIDERS: ADMIT Hospitalist; ATTEND Hospitalist